=== PATIENT | female | born 1990 | race Caucasian/White ===

== ENCOUNTER 2019-04-03 17:54 | Emergency (ER) | payer SELFPAY ==
[~2019-04-03] VITALS: Ht 165.1 cm; Wt 88.5 kg
[~2019-04-03 17:54] MED LIST: METR500T PO; PRCD5U PO; SULF1TAB38 PO; TRAM-21 PO; TYLENOL
--- NOTE | 2019-04-03 18:02 | NUR ---
ex last noc. pt relates no vomiting today. and denies diarrhea. pt here by self. pt alert gcs 15. pt walked from w/r to er room w/o problems. pt been c/o ongoing dizziness and nausea and syncope. . seen dr 2 days ago . pt says they said everthing was normal. pt c/o these c/o continuing. pt denies chest pain and c/o nondescript left sided abd pain since spt denies ua c/os but c/o vaginal d/c and denies other vaginal c/os. no acute sighns of dyspnea noted. lungs cta bilaterally. abd soft nondistended tender to palpation llq abd only. pt to bathroom for ua and relates lmp was 5-24. done bryce pt at 1809.
--- NOTE | 2019-04-03 18:09 | ED EENT ---
History of Present Illness General Stated Complaint: VERTIGO/NAUSEA/PASSED OUT Source: patient Exam Limitations: no limitations History of Present Illness Date Seen by Provider: Apr 03, 2019 Time Seen by Provider: 18:12 Initial Comments To ER per private vehicle with reports of nausea and dizziness passing out and left lower quadrant abdominal pain. The left lower quadrant abdominal pain occurred last night with intercourse. She has had some clear vaginal discharge which she states is unusual because of the duration, it's been ongoing for about a month. She denies any ringing in her ears, rhinorrhea, nasal congestion cough or fevers. She saw primary care for this dizziness and was given a prescription for meclizine but states it did not help. The dizziness improves at rest but it is still present. It is worsened by activity or movement. She hasn't had any passing out or vomiting for 2 days, but the dizziness persists so she presented here today. Timing/Duration: this morning Severity: moderate (Nehemiah Maki did) Prearrival Treatment: no prearrival treatment Associated Symptoms: denies symptoms Allergies and Home Medications Allergies Coded Allergies: Codeine (Unverified Allergy, Mild, 04/16/09) Uncoded Allergies: CODIENE (Allergy, Mild, 02/21/09) Home Medications Metronidazole 500 Mg Tablet, 1 EACH PO BID Prescribed by: FLORENCIO PUGH on 05/30/091614 Trimethoprim/Sulfamethoxazole 1 Ea Tablet, 1 EA PO BID Prescribed by: FLORENCIO PUGH on 05/30/091614 Patient Home Medication List Home Medication List Reviewed: Yes Review of Systems Review of Systems Constitutional: see HPI, dizziness Eyes: No Symptoms Reported Ears: No Symptoms Reported Nose: no symptoms reported Mouth: no symptoms reported Throat: no symptoms reported Respiratory: no symptoms reported Cardiovascular: no symptoms reported Gastrointestinal: no symptoms reported Musculoskeletal: no symptoms reported Past Xvlrlzz-Lobtwq-Nilcej Hx Patient Social History Recent Foreign Travel: No Contact w/Someone Who Travel: No Physical Exam Vital Signs Vital Signs - First Documented 04/03/19 18:02 Temp 98.9 Pulse 88 Resp 16 B/P (MAP) 131/88 (102) Pulse Ox 100 O2 Delivery Room Air Height, Weight, BMI Height: '" Weight: lbs. oz. kg; BMI Method: General Appearance: WD/WN, no apparent distress Eyes: bilateral eye normal inspection, bilateral eye PERRL, bilateral eye EOMI Ears: bilateral ear auricle normal, bilateral ear canal normal, bilateral ear TM normal Mouth/Throat: normal mouth inspection, pharynx normal Neck: non-tender, full range of motion Cardiovascular: regular rate, rhythm, no murmur Respiratory: chest non-tender, lungs clear, normal breath sounds, no respiratory distress, no accessory muscle use Neurologic/Psychiatric: alert, normal mood/affect, oriented x 3 Skin: normal color, warm/dry Ambreen-Hallpike test is positive with increased dizziness/slight nystagmus with head turned to the left. Progress/Results/Core Measures Results/Orders Lab Results Laboratory Tests Test 04/03/19 18:13 04/03/19 18:16 Range/Units Urine Color YELLOW Urine Clarity CLEAR Urine pH 6.5 5-9 Urine Specific [place] 1.005 L 1.016-1.022 Urine Protein NEGATIVE NEGATIVE Urine Glucose (UA) NEGATIVE NEGATIVE Urine Ketones NEGATIVE NEGATIVE Urine Nitrite NEGATIVE NEGATIVE Urine Bilirubin NEGATIVE NEGATIVE Urine Urobilinogen NORMAL NORMAL MG/DL Urine Leukocyte Esterase NEGATIVE NEGATIVE Urine RBC (Auto) 1+ H NEGATIVE Urine RBC RARE /HPF Urine WBC RARE /HPF Urine Squamous Epithelial Cells 5-10 /HPF Urine Crystals NONE /LPF Urine Bacteria NEGATIVE /HPF Urine Casts NONE /LPF Urine Mucus NEGATIVE /LPF Urine Culture Indicated NO White Blood Count 8.8 4.3-11.0 10^3/uL Red Blood Count 4.44 4.35-5.85 10^6/uL Hemoglobin 13.1 11.5-16.0 G/DL Hematocrit 40 35-52 % Mean Corpuscular Volume 91 80-99 FL Mean Corpuscular Hemoglobin 30 25-34 PG Mean Corpuscular Hemoglobin Concent 33 32-36 G/DL Red Cell Distribution Width 13.8 10.0-14.5 % Platelet Count 351 130-400 10^3/uL Mean Platelet Volume 9.4 7.4-10.4 FL Neutrophils (%) (Auto) 66 42-75 % Lymphocytes (%) (Auto) 23 12-44 % Monocytes (%) (Auto) 9 0-12 % Eosinophils (%) (Auto) 1 0-10 % Basophils (%) (Auto) 0 0-10 % Neutrophils # (Auto) 5.9 1.8-7.8 X 10^3 Lymphocytes # (Auto) 2.1 1.0-4.0 X 10^3 Monocytes # (Auto) 0.8 0.0-1.0 X 10^3 Eosinophils # (Auto) 0.1 0.0-0.3 10^3/uL Basophils # (Auto) 0.0 0.0-0.1 10^3/uL Sodium Level 140 135-145 MMOL/L Potassium Level 3.7 3.6-5.0 MMOL/L Chloride Level 102 98-107 MMOL/L Carbon Dioxide Level 26 21-32 MMOL/L Anion Gap 12 5-14 MMOL/L Blood Urea Nitrogen 12 7-18 MG/DL Creatinine 1.02 0.60-1.30 MG/DL Estimat Glomerular Filtration Rate > 60 BUN/Creatinine Ratio 12 Glucose Level 96 70-105 MG/DL Calcium Level 9.7 8.5-10.1 MG/DL Corrected Calcium 8.5-10.1 MG/DL Total Bilirubin 0.3 0.1-1.0 MG/DL Aspartate Amino Transf (AST/SGOT) 19 5-34 U/L Alanine Aminotransferase (ALT/SGPT) 23 0-55 U/L Alkaline Phosphatase 53 40-136 U/L Total Protein 7.9 6.4-8.2 GM/DL Albumin 4.7 H 3.2-4.5 GM/DL Serum Test, Qualitative NEGATIVE NEGATIVE My Orders Orders - DEEDEE AZEVEDO APRN Ua Culture If Indicated (04/03/19 17:57) Cbc With Automated Diff (04/03/19 17:57) Comprehensive Metabolic Panel (04/03/19 17:57) Hcg,Qualitative Serum (04/03/19 17:57) Ed Iv/Invasive Line Start (04/03/19 17:57) Promethazine Injection (Phenergan Injec (04/03/19 18:15) Scopolamine Patch (Transderm-Scop Patch) (04/03/19 18:30) Iohexol Injection (Omnipaque 350 Mg/Ml 1 (04/03/19 18:30) Received Contrast (Hold Metformin- Contr (04/03/19 18:30) Sodium Chloride Flush (Catheter Flush Sy (04/03/19 18:30) Ns (Ivpb) (Sodium Chloride 0.9% Ivpb Bag (04/03/19 18:30) Ct Angio Head W Wo (04/03/19 18:09) Medications Given in ED Current Medications Medications Dose Ordered Sig/Basilio Route Start Time Stop Time Status Last Admin Dose Admin Iohexol 100 ml ONCE ONCE IV 04/03/19 18:30 04/03/19 18:31 DC 04/03/19 19:25 75 ML Promethazine HCl 12.5 mg ONCE ONCE IVP 04/03/19 18:15 04/03/19 18:16 DC 04/03/19 18:25 12.5 MG Scopolamine 1.5 mg ONCE ONCE TD 04/03/19 18:30 04/03/19 18:31 DC 04/03/19 18:24 1.5 MG Sodium Chloride 10 ml NEEDED PRN IV 04/03/19 18:30 04/03/19 19:25 10 ML Sodium Chloride 100 ml ONCE ONCE IV 04/03/19 18:30 04/03/19 18:31 DC 04/03/19 19:25 80 ML Vital Signs/I&O 04/03/19 04/03/19 18:02 19:45 Temp 98.9 98.7 Pulse 88 72 Resp 16 12 B/P (MAP) 131/88 (102) 118/73 (88) Pulse Ox 100 100 O2 Delivery Room Air Room Air Diagnostic Imaging Comments NAME: [facility] REC#: [id number] PT STATUS: REG ER : 1990 PHYSICIAN: DEEDEE AZEVEDO APRN ADMIT DATE: 04/03/19/ER Draft Date of Exam:04/03/19 CT ANGIO HEAD W WO PROCEDURE: CT angiography of the head with and without contrast. TECHNIQUE: Noncontrast CT of the head was obtained. Subsequently, after intravenous administration of contrast, thin section axial CT angiography of the head was performed. Source data was reformatted into multiple MIP reformats. Delayed postcontrast acquisition of the head was also acquired. Auto Exposure Controls were utilized during the CT exam to meet ALARA standards for radiation dose reduction. INDICATION: Vertigo, nausea for one week COMPARISON STUDY: CT scan of the head from 2008. FINDINGS: Noncontrast CT scan of the head demonstrates a persistent cavum septum pellucidum ed vergae which appears stable. No mass effect, midline shift, hemorrhage or extra-axial fluid collections are present. The carotid siphons appear normal. The right A1 segment is little small. The anterior communicating artery is patent. This is a normal variant. Middle cerebral arteries appear normal. The vertebral arteries are symmetric in size. Basilar artery appears normal. No stenosis or aneurysms are present. Bone windows demonstrate the mastoid air cells to be clear. 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 Questionable left jugular bulb dehiscence also. IMPRESSION: 1. 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 2. No acute findings are present. Dictated on workstation # [id number] Dict: 04/03/192031 Trans: 04/03/192045 [facility] [id number] Interpreted by: DREW FERRELL MD Electronically signed by: Departure Communication (Admissions) [id number]-discussed the CT findings of jugular bulb dehiscence with Dr. Vo from [facility] [place]. He advises that if she is feeling better she can go home to follow up outpatient with ear nose and throat. He states this is a potential cause of vertigo and should be treated surgically by ear nose and throat department. Impression Primary Impression: Vertigo Disposition: 01 HOME, SELF-CARE Condition: Stable Departure-Patient Inst. Decision time for Depature: 21:13 Referrals: NO,LOCAL PHYSICIAN (PCP/Family) Primary Care Physician Patient Instructions: Vertigo (a Type of Dizziness) (DC) Add. Discharge Instructions: 1. Follow-up with the ear nose and throat department at [facility]. Tell them you need to be seen for vertigo suspected to be caused by jugular bulb dehiscence. [facility] Department of Otolaryngology Address: [address] [place] [address] Scripts Scopolamine (Transderm-Scop) 1 Each Patch.td72 1 EACH TD Q72H PRN for VERTIGO, #2 PATCH Prov: DEEDEE AZEVEDO APRN 04/03/19 DEEDEE AZEVEDO [employer] ENGINEERING TEACHER Apr 03, 2019 18:09
[2019-04-03] MEDS ORDERED: PROMETHAZINE INJ 25 MG/ML (PHENERGAN) AMP IVP ONE (18:15)
--- NOTE | 2019-04-03 18:19 | NUR ---
labs and ua to lab by me
[2019-04-03 18:22] LABS: BASOPHILS % (AUTO) 0 % (0-10); EOSINOPHILS # (AUTO) 0.1 10^3/uL (0.0-0.3); EOSINOPHILS % (AUTO) 1 % (0-10); HEMATOCRIT 40 % (35-52); HEMOGLOBIN 13.1 G/DL (11.5-16.0); LYMPHOCYTES # (AUTO) 2.1 X 10^3 (1.0-4.0); LYMPHOCYTES % (AUTO) 23 % (12-44); MEAN CORPUSCULAR HEMOGLOBIN 30 PG (25-34); MEAN CORPUSCULAR HGB CONC 33 G/DL (32-36); MEAN CORPUSCULAR VOLUME 91 FL (80-99); MEAN PLATELET VOLUME 9.4 FL (7.4-10.4); MONOCYTES # (AUTO) 0.8 X 10^3 (0.0-1.0); MONOCYTES % (AUTO) 9 % (0-12); NEUTROPHILS # (AUTO) 5.9 X 10^3 (1.8-7.8); NEUTROPHILS % (AUTO) 66 % (42-75); PLATELET COUNT 351 10^3/uL (130-400); RED CELL DISTRIBUTION WIDTH 13.8 % (10.0-14.5); WHITE BLOOD COUNT 8.8 10^3/uL (4.3-11.0)
[2019-04-03 18:24] LABS: BILIRUBIN,URINE NEGATIVE (NEGATIVE); CLARITY,URINE CLEAR; COLOR,URINE YELLOW; GLUCOSE, URINE (UA) NEGATIVE (NEGATIVE); KETONES,URINE NEGATIVE (NEGATIVE); LEUKOCYTE ESTERASE ,URINE NEGATIVE (NEGATIVE); NITRITE,URINE NEGATIVE (NEGATIVE); PH,URINE 6.5 (5-9); PROTEIN,URINE NEGATIVE (NEGATIVE); UROBILINOGEN,URINE NORMAL (NORMAL)
[2019-04-03 18:29] LABS: BACTERIA,URINE NEGATIVE /HPF; RBC,URINE RARE /HPF; WBC,URINE RARE /HPF
[2019-04-03] MEDS ORDERED: HOLD METFORMIN - RECEIVED CONTRAST 20 ML VIAL IV SCH (18:30)
[2019-04-03] MEDS ORDERED: NS 100 ML (IVPB) BAG IV ONE (18:30)
[2019-04-03] MEDS ORDERED: IOHEXOL 350 MG/ML 100 ML (OMNIPAQUE 350) VIAL IV ONE (18:30)
[2019-04-03] MEDS ORDERED: SCOPOLAMINE 1.5 MG (TRANSDERM-SCOP) PATCH TD ONE (18:30)
[2019-04-03] MEDS ORDERED: CATHETER FLUSH 10 ML SYR IV PRN (18:30)
[2019-04-03 18:40] LABS: ALANINE AMINOTRANSFERASE 23 U/L (0-55); ALBUMIN 4.7 GM/DL (3.2-4.5); ALKALINE PHOSPHATASE 53 U/L (40-136); BILIRUBIN,TOTAL 0.3 MG/DL (0.1-1.0); BUN/CREATININE RATIO 12; CALCIUM 9.7 MG/DL (8.5-10.1); CARBON DIOXIDE 26 MMOL/L (21-32); CHLORIDE 102 MMOL/L (98-107); CREATININE SERUM 1.02 MG/DL (0.60-1.30); GFR ESTIMATED > 60; GLUCOSE 96 MG/DL (70-105); POTASSIUM 3.7 MMOL/L (3.6-5.0); SODIUM 140 MMOL/L (135-145); TOTAL PROTEIN 7.9 GM/DL (6.4-8.2)
--- OUTSIDE RECORDS SUMMARY | 2019-04-03 19:09 | XMS REPORT | Continuity of Care Document ---
Author Organization Unknown Address Unknown Allergies There is no data. Medications There is no data. Problems There is no data. Procedures There is no data. Results There is no data. Encounters ACCT No. Visit Date/Time Discharge Status Pt. Type Provider Facility Loc./Unit Complaint [id number] 04/01/2019 15:40:00 [facility]
--- NOTE | 2019-04-03 19:44 | NUR ---
pt remains alert gcs 15 and here by self. pt relates less dizzy but it continues. denies nausea and no v/d noted in er visit thus far. no syncope noted in er visit thus far.
[2019-04-03 19:45] VITALS: BP 118/73
--- NOTE | 2019-04-03 20:47 | Diagnostic Imaging Report ---
PROCEDURE: CT angiography of the head with and without contrast. TECHNIQUE: Noncontrast CT of the head was obtained. Subsequently, after intravenous administration of contrast, thin section axial CT angiography of the head was performed. Source data was reformatted into multiple MIP reformats. Delayed postcontrast acquisition of the head was also acquired. Auto Exposure Controls were utilized during the CT exam to meet ALARA standards for radiation dose reduction. INDICATION: Vertigo, nausea for one week COMPARISON STUDY: CT scan of the head from 2008. FINDINGS: Noncontrast CT scan of the head demonstrates a persistent cavum septum pellucidum ed vergae which appears stable. No mass effect, midline shift, hemorrhage or extra-axial fluid collections are present. The carotid siphons appear normal. The right A1 segment is little small. The anterior communicating artery is patent. This is a normal variant. Middle cerebral arteries appear normal. The vertebral arteries are symmetric in size. Basilar artery appears normal. No stenosis or aneurysms are present. Bone windows demonstrate the mastoid air cells to be clear. 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 Questionable left jugular bulb dehiscence also. IMPRESSION: 1. 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 2. No acute findings are present. Dictated by: Dictated on workstation # [id number]
[2019-04-03] MEDS ORDERED: SCOP1PAT11 TD (21:15)
[2019-04-03 21:25] VITALS: BP 113/74
--- NOTE | 2019-04-03 21:25 | NUR ---
d/c instrcutions to pt. told to read all papers. scripts paper only. pt left ambulatory by self. pt knows f/u. i went over the handtyped by information on the chart. iv d/cd by me prior to d/c.
== END 2019-04-03 21:25 | disposition home or self-care (01) ==
LOC: EDUNIT# 17:54 → ER 17:56
DX: R42 Dizziness and giddiness (principal); Z88.5 Allergy status to narcotic agent
CPT/HCPCS: 36415; 70496; 80053; 81000; 84703; 85025; 96374

== ENCOUNTER 2019-11-25 20:40 | Emergency (ER) | payer MEDICAID ==
[~2019-11-25] VITALS: Ht 160 cm; Wt 95.1 kg
[~2019-11-25 20:40] MED LIST changes: +SCOP1PAT11 TD
[2019-11-25] MEDS ORDERED: NS IV 1000 ML 1,000 ML IV ONE (21:52)
[2019-11-25] MEDS ORDERED: PROM25TA14 PO (21:57)
--- NOTE | 2019-11-25 21:58 | ED General ---
General Chief Complaint: Fever-Adult/Adol Stated Complaint: VOMITTNG,FEVER,COUGHING,10 WEEKS PREG Nursing Triage Note: sore throat, dry cough x1 day, fever, vomitting x3 today Nursing Sepsis Screen: Possible Severe Sepsis Risk Source of Information: Patient Exam Limitations: No Limitations History of Present Illness Date Seen by Provider: Nov 26, 2019 Time Seen by Provider: 20:57 Initial Comments This 29-year-old woman at approximately 10 weeks gestational age presents with 3 days of fever, sore throat and cough. She vomited 3 today. She is tachycardic and febrile. Allergies and Home Medications Allergies Coded Allergies: Codeine (Unverified Allergy, Mild, 04/16/09) Uncoded Allergies: CODIENE (Allergy, Mild, 02/21/09) Home Medications Promethazine HCl 25 Mg Tablet, 25 MG PO Q8H PRN for NAUSEA/VOMITING Prescribed by: JG GORDON on 11/25/19 2504 Patient Home Medication List Home Medication List Reviewed: Yes Review of Systems Review of Systems Constitutional: see HPI EENTM: see HPI Respiratory: see HPI Cardiovascular: see HPI Gastrointestinal: see HPI Genitourinary: no symptoms reported : Yes Expected Date of Delivery: Jun 17, 2020 Musculoskeletal: no symptoms reported Skin: no symptoms reported Psychiatric/Neurological: No Symptoms Reported Hematologic/Lymphatic: No Symptoms Reported Immunological/Allergic: no symptoms reported Past Rkpeaoj-Salglu-Flkczd Hx Past Med/Social Hx: Reviewed Nursing Past Med/Soc Hx Patient Social History Alcohol Use: Denies Use Recreational Drug Use: No Smoking Status: Never a Smoker 2nd Hand Smoke Exposure: No Recent Foreign Travel: No Contact w/Someone Who Travel: No Recent Infectious Disease Expo: No Recent Hopitalizations: No Physical Abuse: No Sexual Abuse: No Mistreated: No Fear: No Immunizations Up To Date Tetanus Booster (TDap): Unknown Seasonal Allergies Seasonal Allergies: No Past Medical History Surgeries: Yes (dental) Bladder Surgery Respiratory: No Cardiac: No Neurological: No : Yes Expected Date of Delivery: Jun 17, 2020 Last Menstrual Period: Aug 29, 2019 Genitourinary: No Gastrointestinal: No Musculoskeletal: No Endocrine: Yes Hypothyroidsim HEENT: No Cancer: No Psychosocial: No Integumentary: No Physical Exam Vital Signs Vital Signs - First Documented 11/25/19 20:49 Temp 39.5 Pulse 124 Resp 16 B/P (MAP) 120/67 (84) Pulse Ox 96 O2 Delivery Room Air Capillary Refill : Less Than 3 Seconds Height, Weight, BMI Height: 5'5.00" Weight: 195lbs. oz. 88.887543rb; 37.00 BMI Method:Stated General Appearance: No Apparent Distress, WD/WN HEENT: PERRL/EOMI, Normal ENT Inspection, Pharynx Normal Neck: Normal Inspection Respiratory: Lungs Clear, Normal Breath Sounds, No Accessory Muscle Use, No Respiratory Distress Cardiovascular: Regular Rate, Rhythm, No Edema, No Murmur, Tachycardia (regular) Gastrointestinal: Normal Bowel Sounds, Non Tender, Soft Extremity: Normal Inspection, No Pedal Edema Neurologic/Psychiatric: Alert, Oriented x3, No Motor/Sensory Deficits, Normal Mood/Affect, liquor blender II-XII Norm as Tested Skin: Normal Color, Warm/Dry Progress/Results/Core Measures Suspected Sepsis Recent Fever Within 48 Hours: Yes Infection Criteria Present: Suspected New Infection New/Unexplained Altered Menta: No Sepsis Screen: Possible Severe Sepsis Risk SIRS Temperature: Pulse: 124 Respiratory Rate: 16 Blood Pressure 120 /67 Mean: 84 Laboratory Tests 11/25/19 21:55: Creatinine 0.86 Results/Orders Lab Results Laboratory Tests Test 11/25/19 20:56 11/25/19 21:55 Range/Units Group A Streptococcus Screen NEGATIVE NEGATIVE Sodium Level 136 135-145 MMOL/L Potassium Level 3.9 3.6-5.0 MMOL/L Chloride Level 104 98-107 MMOL/L Carbon Dioxide Level 23 21-32 MMOL/L Anion Gap 9 5-14 MMOL/L Blood Urea Nitrogen 9 7-18 MG/DL Creatinine 0.86 0.60-1.30 MG/DL Estimat Glomerular Filtration Rate > 60 BUN/Creatinine Ratio 10 Glucose Level 96 70-105 MG/DL Calcium Level 8.9 8.5-10.1 MG/DL Micro Results Microbiology 11/25/19 Influenza Types A,B Antigen (BHAVIK) - Final, Complete My Orders Orders - JG TOWNSEND MD Rapid Strep A Screen (11/25/19 20:57) Influenza A And B Antigens (11/25/19 20:57) Ed Iv/Invasive Line Start (11/25/19 21:52) Ns Iv 1000 Ml (Sodium Chloride 0.9%) (11/25/19 21:52) Basic Metabolic Panel (11/25/19 21:52) Promethazine Injection (Phenergan Injec (11/25/19 22:00) Medications Given in ED Current Medications Medications Dose Ordered Sig/Basilio Route Start Time Stop Time Status Last Admin Dose Admin Promethazine HCl 25 mg ONCE ONCE IVP 11/25/19 22:00 11/25/19 22:01 DC 11/25/19 21:56 25 MG Sodium Chloride 1,000 ml @ 0 mls/hr Q0M ONCE IV 11/25/19 21:52 11/25/19 21:53 DC 11/25/19 21:56 0 MLS/HR Vital Signs/I&O 11/25/19 11/25/19 20:49 22:27 Temp 39.5 38.1 Pulse 124 104 Resp 16 16 B/P (MAP) 120/67 (84) 110/76 (84) Pulse Ox 96 100 O2 Delivery Room Air Room Air 11/26/19 00:00 Intake Total 1000 ml Balance 1000 ml Capillary Refill : Less Than 3 Seconds Blood Pressure Mean: 84 Progress Note : Progress Note Patient was found to have influenza B. She is concerned about her hydration status and is quite tachycardic. A liter of IV normal saline and Phenergan were ordered. Departure Impression Primary Impression: Influenza B Additional Impression: Nausea and vomiting Qualified Codes: R11.2 - Nausea with vomiting, unspecified Disposition: 01 HOME, SELF-CARE Condition: Improved Departure-Patient Inst. Decision time for Depature: 21:55 Referrals: NO,LOCAL PHYSICIAN (PCP/Family) Primary Care Physician Patient Instructions: Flu, Adult (DC) Add. Discharge Instructions: Drink plenty of clear liquids. Gradually advance your diet with small quantities of bland food as tolerated. You may use Phenergan (promethazine) as prescribed for nausea and vomiting. Please notify your partnership manager of your condition in the morning. He may continue using Tylenol (acetaminophen) up to 1000 mg every 6 hours as needed for pain or fever. Return to care if you have worsening symptoms or have any other problems or concerns. All discharge instructions reviewed with patient and/or family. Voiced understanding. Scripts Promethazine HCl (Promethazine Tablet) 25 Mg Tablet 25 MG PO Q8H PRN for NAUSEA/VOMITING, #10 TAB 0 Refills Prov: JG TOWNSEND MD 11/25/19 JG TOWNSEND MD Nov 25, 2019 21:58
[2019-11-25] MEDS ORDERED: PROMETHAZINE INJ 25 MG/ML (PHENERGAN) AMP IVP ONE (22:00)
[2019-11-25 22:25] LABS: BUN/CREATININE RATIO 10; CALCIUM 8.9 MG/DL (8.5-10.1); CARBON DIOXIDE 23 MMOL/L (21-32); CHLORIDE 104 MMOL/L (98-107); CREATININE SERUM 0.86 MG/DL (0.60-1.30); GFR ESTIMATED > 60; GLUCOSE 96 MG/DL (70-105); POTASSIUM 3.9 MMOL/L (3.6-5.0); SODIUM 136 MMOL/L (135-145)
[2019-11-25 22:27] VITALS: BP 110/76
== END 2019-11-25 22:27 | disposition home or self-care (01) ==
LOC: EDUNIT# 20:40 → ER 20:43
DX: O99.511 Diseases of the respiratory system complicating pregnancy, first trimester (principal); J10.1 Influenza due to other identified influenza virus with other respiratory manifestations; O21.0 Mild hyperemesis gravidarum; Z88.5 Allergy status to narcotic agent; Z3A.10 10 weeks gestation of pregnancy
CPT/HCPCS: 36415; 80048; 87430; 87804; 96374

== ENCOUNTER 2020-02-29 23:33 | Outpatient (CLI) | payer MEDICAID ==
[~2020-02-29] VITALS: Ht 160 cm; Wt 97.8 kg
[~2020-02-29 23:33] MED LIST changes: +PROM25TA14 PO
--- NOTE | 2020-02-29 23:40 | NUR ---
MAYO FERGUSON presented to unit via wc from ED, accompanied by s.o and inweaver, with c/o RT SIDE SHARP PAIN. MAYO FERGUSON weighed, gowned, voided, and to bed. EFHM and TOCO applied, VS taken. MAYO FERGUSON oriented to bed controls, call light, TV, heat, and A/C controls. further assessments to follow per this rn.
[2020-03-01] VITALS: BP 123/85
[2020-03-01 00:03] VITALS: BP 123/65
[2020-03-01 00:16] LABS: BILIRUBIN,URINE NEGATIVE (NEGATIVE); CLARITY,URINE CLEAR; COLOR,URINE YELLOW; GLUCOSE, URINE (UA) NEGATIVE (NEGATIVE); KETONES,URINE NEGATIVE (NEGATIVE); LEUKOCYTE ESTERASE ,URINE 1+ (NEGATIVE); NITRITE,URINE NEGATIVE (NEGATIVE); PH,URINE 6.5 (5-9); PROTEIN,URINE NEGATIVE (NEGATIVE)
[2020-03-01 00:24] LABS: BACTERIA,URINE FEW /HPF; RBC,URINE RARE /HPF; WBC,URINE 0-2 /HPF
--- NOTE | 2020-03-01 00:30 | NUR ---
notified of pt arrival, gestation, c.o R sided pain radiating down into the pelvic area since 1099. Pt reports entire area as dull pain that is constant at 6/10 pain scale, and sharp int pain localized in RLQ rated 10/10, unrelieved by tylenol 650mg taken at 1999, RUQ tenderness upon palpation, ctx pattern, fhr pattern, vs, u/a results, orders for lab work, rn asks if cbc, cmp, ldh, uric acid, and pcr are wanted, orders for just cbc cmp. Addendum: 03/01/20 at 0140 by EDD ANTHONY RN if lab results wnl pt may be discharged.
--- NOTE | 2020-03-01 00:50 | NUR ---
labs drawn per rn and sent to lab.
[2020-03-01 01:01] LABS: BASOPHILS % (AUTO) 0 % (0-10); EOSINOPHILS # (AUTO) 0.1 10^3/uL (0.0-0.3); EOSINOPHILS % (AUTO) 1 % (0-10); HEMATOCRIT 31 % (35-52); HEMOGLOBIN 10.1 G/DL (11.5-16.0); LYMPHOCYTES # (AUTO) 1.8 X 10^3 (1.0-4.0); LYMPHOCYTES % (AUTO) 19 % (12-44); MEAN CORPUSCULAR HEMOGLOBIN 31 PG (25-34); MEAN CORPUSCULAR HGB CONC 33 G/DL (32-36); MEAN CORPUSCULAR VOLUME 93 FL (80-99); MEAN PLATELET VOLUME 9.3 FL (7.4-10.4); MONOCYTES # (AUTO) 0.9 X 10^3 (0.0-1.0); MONOCYTES % (AUTO) 9 % (0-12); NEUTROPHILS # (AUTO) 6.7 X 10^3 (1.8-7.8); NEUTROPHILS % (AUTO) 70 % (42-75); PLATELET COUNT 278 10^3/uL (130-400); RED CELL DISTRIBUTION WIDTH 14.2 % (10.0-14.5); WHITE BLOOD COUNT 9.5 10^3/uL (4.3-11.0)
[2020-03-01 01:08] LABS: ALBUMIN 3.5 GM/DL (3.2-4.5)
[2020-03-01 01:09] LABS: CHLORIDE 105 MMOL/L (98-107); POTASSIUM 3.6 MMOL/L (3.6-5.0); SODIUM 137 MMOL/L (135-145)
[2020-03-01 01:10] LABS: CALCIUM 8.6 MG/DL (8.5-10.1)
[2020-03-01 01:11] LABS: GLUCOSE 87 MG/DL (70-105); TOTAL PROTEIN 6.3 GM/DL (6.4-8.2)
[2020-03-01 01:12] LABS: CARBON DIOXIDE 22 MMOL/L (21-32)
[2020-03-01 01:13] LABS: BILIRUBIN,TOTAL 0.1 MG/DL (0.1-1.0)
[2020-03-01 01:14] LABS: ALKALINE PHOSPHATASE 54 U/L (40-136); CREATININE SERUM 0.68 MG/DL (0.60-1.30); GFR ESTIMATED > 60
[2020-03-01 01:16] LABS: BUN/CREATININE RATIO 9
[2020-03-01 01:17] LABS: ALANINE AMINOTRANSFERASE 15 U/L (0-55)
[2020-03-01] MEDS ORDERED: PREN-53 PO (01:23)
--- NOTE | 2020-03-01 01:28 | NUR ---
discharge packet given and explained, understanding voiced, pt urged to keep appt previously made with for tomorrow. Pt voices understanding. Addendum: 03/01/20 at 0141 by EDD ANTHONY RN pt ambulatory off unit at this time accompanied by s/o. no ss distress, no needs voiced, no concerns noted.
[2020-03-01 01:41] VITALS: BP 123/65
--- NOTE | 2020-03-01 01:42 | NUR ---
NO PNR AVAILABLE AT TIME OF VISIT.
--- NOTE | 2020-03-01 08:39 | Physician Query-Final Dx ---
Clinic Account Progress/Dx Physician Query: Please give diagnosis Date of Service Feb 29, 2020 at 23:33 MARIA ESTHER DOWNEY Mar 01, 2020 08:39
== END 2020-03-01 01:28 | disposition home or self-care (01) ==
LOC: WSo 23:33 → LDRP 23:35 → WSo 03-01 01:28
PROVIDERS: ATTEND Family Medicine
DX: O26.899 Other specified pregnancy related conditions, unspecified trimester (principal); R10.9 Unspecified abdominal pain; Z3A.00 Weeks of gestation of pregnancy not specified
CPT/HCPCS: 36415; 80053; 81000; 85025; 99213

== ENCOUNTER 2020-04-24 22:01 | Outpatient (CLI) | payer MEDICAID ==
[~2020-04-24] VITALS: Ht 160 cm; Wt 101.2 kg
[~2020-04-24 22:01] MED LIST changes: +PREN-53 PO
--- NOTE | 2020-04-24 22:07 | NUR ---
MAYO FERGUSON presented to unit via ambulatory from ED, accompanied by s.o., with c/o PRESSURE/CONTRACTIONS. MAYO FERGUSON weighed, gowned, voided, and to bed. EFHM and TOCO applied, VS taken. MAYO FERGUSON oriented to bed controls, call light, TV, heat, and A/C controls.
[2020-04-24 22:17] VITALS: BP 120/64
[2020-04-24 22:20] VITALS: BP 120/64
[2020-04-24 22:24] VITALS: BP 120/64
[2020-04-24 22:32] LABS: BILIRUBIN,URINE NEGATIVE (NEGATIVE); CLARITY,URINE SL CLOUDY; COLOR,URINE YELLOW; GLUCOSE, URINE (UA) NEGATIVE (NEGATIVE); KETONES,URINE NEGATIVE (NEGATIVE); LEUKOCYTE ESTERASE ,URINE 1+ (NEGATIVE); NITRITE,URINE NEGATIVE (NEGATIVE); PROTEIN,URINE NEGATIVE (NEGATIVE)
[2020-04-24 22:38] LABS: BACTERIA,URINE FEW /HPF; SQUAMOUS EPITHELIAL CELL,UR 25-50 /HPF
--- NOTE | 2020-04-24 23:22 | NUR ---
Dr. Triana called per Bogdan Montoya RN. Will cont to monitor x1 more hour and recheck cervix at that time.
[2020-04-25 07:19] VITALS: BP 119/58
--- NOTE | 2020-04-25 08:05 | NUR ---
VISUAL EDUCATOR HERE TO DO OB ULTRASOUND.
[2020-04-25 08:20] VITALS: BP 114/55
--- NOTE | 2020-04-25 08:25 | NUR ---
NOTIFIED OF BOBBI OF 12, NO CTXS, AND REACTIVE FHR PATTERN. ORDER TO DISCHARGE.
--- NOTE | 2020-04-25 08:50 | NUR ---
EFM OFF. UP TO GET DRESSED. NO CTXS. FHR 125 WITH MOD VARIABILITY AND + FM WITH + ACCELS.
[2020-04-25 09:00] VITALS: BP 114/55
--- NOTE | 2020-04-25 09:00 | NUR ---
DISCHARGE INSTRUCTIONS REVIEWED WITH PT AND S.O. AND COPY GIVEN. STATES UNDERSTANDING OF ALL INSTRUCTIONS AND NEED TO F/U SCHEDULED TOMORROW WITH DR. PAGAN AND NEEDED. DISMISSED FROM WS AMB IN STABLE CONDITION ACC BY S.O.
--- NOTE | 2020-04-25 09:49 | NUR ---
U/S TECH RETURNED TO UNIT TO TAKE MORE PICTURES TRANSVAGINALLY. PT HAS DEPARTED. DR. DAWSON NOTIFIED OF SITUATION AND WILL CONTACT DR. VICTOR AND PATIENT.
--- NOTE | 2020-04-25 10:20 | Diagnostic Imaging Report ---
INDICATION: Evaluate amniotic fluid index. TECHNIQUE: Multiple real-time grayscale images were obtained over the gravid uterus. COMPARISON: None FINDINGS: There is a single live fetus in a cephalic presentation. heart rate was recorded at 120 bpm. Placenta is posterior. A no previa is identified. The placental tip is approximately 10 cm from the internal cervical os. Amniotic fluid index is 13 cm. Biometrical measurements are as follows: Biparietal 9.25 cm, age 37 weeks 5 days. Head circumference 33.02 cm, age 37 weeks 5 days. Abdominal circumference 30.81 cm, age 34 weeks 6 days. Femur length 6.42 cm, age 33 weeks 2 days. Sonographic estimate age: 36 weeks 0 days. Sonographic estimated date of delivery: 05/23/2020. Estimated Weight: 2539 gm (+/- 371 gm). LMP percentile: 70%. heart rate: 120 beats per minute. number: 1 of 1. IMPRESSION: Single live IUP approximately 36 weeks gestational age with estimated date of confinement sonographically of 05/23/2020. No definite complicating features are seen. Dictated by: Dictated on workstation # [id number]
--- NOTE | 2020-04-26 09:53 | Physician Query-Final Dx ---
Clinic Account Progress/Dx Physician Query: Please give diagnosis Please include # weeks gestation Date of Service Apr 24, 2020 at 22:01 MARIA ESTHER DOWNEY Apr 26, 2020 09:53
== END 2020-04-25 09:00 | disposition home or self-care (01) ==
LOC: WSo 22:01 → LDRP 22:01 → WSo 04-25 09:00
PROVIDERS: ATTEND Family Medicine
DX: O62.9 Abnormality of forces of labor, unspecified (principal)
CPT/HCPCS: 76805; 81000; 87088; G0463; 99213

== ENCOUNTER 2020-05-02 12:50 | Outpatient (CLI) | payer MEDICAID ==
[~2020-05-02] VITALS: Ht 160 cm; Wt 101.7 kg
--- NOTE | 2020-05-02 12:55 | NUR ---
MAYO FERGUSON presented to unit via AMBULATORY from ED, accompanied by S/O, with c/o ABD CRAMPS;BACK PAIN. MAYO FERGUSON weighed, gowned, voided, and to bed. EFHM and TOCO applied, VS taken. MAYO FERGUSON oriented to bed controls, call light, TV, heat, and A/C controls.
[2020-05-02 13:10] VITALS: BP 122/69
--- NOTE | 2020-05-02 13:15 | NUR ---
DR. RODRIGUEZ, RESIDENT, ON UNIT TO MANAGE PT CARE.
[2020-05-02 13:16] VITALS: BP 122/69
[2020-05-02 13:56] LABS: BILIRUBIN,URINE NEGATIVE (NEGATIVE); CLARITY,URINE SL CLOUDY; COLOR,URINE YELLOW; GLUCOSE, URINE (UA) NEGATIVE (NEGATIVE); KETONES,URINE NEGATIVE (NEGATIVE); LEUKOCYTE ESTERASE ,URINE 1+ (NEGATIVE); NITRITE,URINE NEGATIVE (NEGATIVE); PH,URINE 7.5 (5-9); PROTEIN,URINE NEGATIVE (NEGATIVE)
[2020-05-02 14:03] LABS: BACTERIA,URINE MODERATE /HPF; SQUAMOUS EPITHELIAL CELL,UR 25-50 /HPF
--- NOTE | 2020-05-02 14:14 | OB Triage Report ---
Standard Progress Note Progress Notes/Assess & Plan Date Seen by a Provider: May 02, 2020 Time Seen by a Provider: 14:00 Expected Date of Delivery: Jun 17, 2020 Gestational Age in Weeks: 33 Gestational Age in Days: 3 LMP/COY Comment: COY: 06/17/2020 by Mahad 10/27/2019 Progress/Assessment & Plan Lyndsey Blue is a with no previous past medical history presents to OB triage reporting one week history progressive abdominal and back cramping. She also mentions that yesterday her symptoms changed in ways of headache, shortness of breath, diarrhea, and increased sciatica pain. She denies intractable headache, vision changes, chest pain/pressure, LUQ pain, increased swelling. She has not tried any medications for the pain and/or cramps. She endorses losing her mucus plug last week, but denies vaginal bleeding or loss of fluid, or pains consistent with contractions. She admits to movement, although movement has been decreased today when compared to baseline. heart rate: 140 Category: II, + accels, no decels, moderate variability TOCO: irritability, 0/10 Urinalysis with leukocytes, WBCs, and moderate bacteria with urinary frequency (increased from baseline) consistent with UTI. Wet prep positive for fungal elements and patient with increased white discharge consistent with candidiasis of vagina in . Final Diagnosis Urinary tract infection and vaginal Candidiasis in . Diagnosis/Problems Diagnosis/Problems (1) Urinary tract infection affecting Status: Acute Assessment & Plan: - Macrobid 100mg BID x 10days - Pyridium 100mg TID x 2 days (2) Candidiasis of vagina during Status: Acute Assessment & Plan: - Diflucan 150mg PO q48h x 2 doses (3) Headache Status: Acute Assessment & Plan: - Fioricet 50mg/300mg/40mg once in OB triage for headache and abdominal/sciatica pains Qualifiers: Qualified Codes: R51 - Headache CARLTON RODRIGUEZ MD May 02, 2020 14:14
[2020-05-02] MEDS ORDERED: CEPHALEXIN 250 MG (KEFLEX) CAP PO SCH (14:15)
[2020-05-02] MEDS ORDERED: CEPH250C PO (14:23)
--- NOTE | 2020-05-02 14:27 | Discharge Inst-Women's Service ---
Discharge Inst-Women's Serv Depart Medication/Instructions New, Converted or Re-Newed RX: Transmitted to Pharmacy Instructions Take Keflex 1 tablet every 6 hours for 5 days for Urinary Tract Infection. Final Diagnosis complicated by UTI Problems Reviewed?: Yes Consults/Follow Up Additional Follow Up: Yes Orders/Referrals Follow up with OB provider as scheduled for routine care. Activity Activity: Activity as Tolerated Driving Instructions: You May Drive NO SMOKING: NO SMOKING Diet Discharge Diet: No Restrictions Return to The Hospital For: Shortness of breath that does not resolve with rest, vaginal bleeding, decreased movement, loss of fluid (water breaks) Symptoms to Report to : Swelling Increased, Bleeding Excessive, Eyesight Changes, Urine Color Change, Fever Over 101 Degrees F, Pain/Pressure in Chest, Lightheadedness, Vaginal Discharge Foul, Shortness of Breath For Any Problems or Questions: Contact Your Physician, Go to Emergency Room CARLTON RODRIGUEZ MD May 02, 2020 14:27
[2020-05-02] MEDS ORDERED: ACET/BUTAL/CAFF (FIORICET) TAB PO ONE (14:45)
[2020-05-02] MEDS ORDERED: NITR-65 PO (14:49)
[2020-05-02] MEDS ORDERED: PHEN-639 PO (14:49)
[2020-05-02] MEDS ORDERED: FLUC150T PO (14:49)
--- NOTE | 2020-05-02 15:12 | NUR ---
DISCHARGE PAPERS PROVIDED AND REVIEWED WITH PT, PT VERBALIZES UNDERSTANDING AND DENIES ANY QUESTIONS AT THIS TIME. PAPER SIGNED.
--- NOTE | 2020-05-02 15:20 | NUR ---
PT DISCHARGED FROM [facility] TO [facility] AMBULATORY IN STABLE CONDITION ACC BY S/O.
== END 2020-05-02 15:20 | disposition home or self-care (01) ==
LOC: WSo 12:50 → LDRP 12:51 → WSo 15:20
PROVIDERS: ATTEND Obstetrics & Gynecology
DX: O23.43 Unspecified infection of urinary tract in pregnancy, third trimester (principal); O98.813 Other maternal infectious and parasitic diseases complicating pregnancy, third trimester; B37.3 Candidiasis of vulva and vagina; Z3A.33 33 weeks gestation of pregnancy; R51 Headache
CPT/HCPCS: 81000; 87077; 87088; 87210; G0463; 99213

== ENCOUNTER 2020-05-23 23:24 | Outpatient (CLI) | payer MEDICAID ==
[~2020-05-23 23:24] MED LIST changes: +CEPH250C PO; +FLUC150T PO; +NITR-65 PO; +PHEN-639 PO
--- NOTE | 2020-05-23 23:26 | NUR ---
AMYO FERGUSON presented to unit via w'c from ED, accompanied by s/o, with c/o FLUID LEAKAGE. MAYO FERGUSON weighed, gowned, voided, and to bed. EFHM and TOCO applied, VS taken. MAYO FERGUSON oriented to bed controls, call light, TV, heat, and A/C controls.
[2020-05-23 23:35] VITALS: BP 123/58
[2020-05-23 23:39] VITALS: BP 123/58
--- NOTE | 2020-05-23 23:39 | NUR ---
ht and wt not obtained r/t possible leaking, ambulation contraindicated.
[2020-05-24] VITALS: BP 123/58
[2020-05-24 00:07] LABS: BILIRUBIN,URINE NEGATIVE (NEGATIVE); CLARITY,URINE SL CLOUDY; COLOR,URINE YELLOW; GLUCOSE, URINE (UA) NEGATIVE (NEGATIVE); KETONES,URINE NEGATIVE (NEGATIVE); LEUKOCYTE ESTERASE ,URINE NEGATIVE (NEGATIVE); NITRITE,URINE NEGATIVE (NEGATIVE); PH,URINE 5.5 (5-9); PROTEIN,URINE NEGATIVE (NEGATIVE)
[2020-05-24 00:27] LABS: BACTERIA,URINE TRACE /HPF
[2020-05-24 00:28] LABS: AMORPHOUS SEDIMENT,UR MOD AMOR URATES /LPF
--- NOTE | 2020-05-24 00:45 | NUR ---
Discharge packet given and explained, understanding voiced, pt up to change for dismissal.
--- NOTE | 2020-05-24 00:53 | NUR ---
Ambulatory off unit at this time. Accompanied by s/o no ss distress noted.
--- NOTE | 2020-05-24 08:21 | Physician Query-Final Dx ---
MARIA ESTHER DOWNEY 05/24/20 0821: Clinic Account Progress/Dx Physician Query: Please give diagnosis Please give # weeks gestation Date of Service May 23, 2020 at 23:24 ELMO DOE DO 05/25/20 0625: Clinic Account Progress/Dx Physician Query: Please give diagnosis DIAGNOSIS: Diagnosis Intrauterine at 35 weeks 2. Leaking Fluid 3. Pelvic Pain MARIA ESTHER DOWNEY May 24, 2020 08:21 ELMO DOE DO May 25, 2020 06:25
== END 2020-05-24 00:53 | disposition home or self-care (01) ==
LOC: WSo 23:24 → LDRP 23:26 → WSo 05-24 00:53
PROVIDERS: ATTEND Obstetrics & Gynecology
DX: O41.93X0 Disorder of amniotic fluid and membranes, unspecified, third trimester, not applicable or unspecified (principal); Z3A.36 36 weeks gestation of pregnancy
CPT/HCPCS: 81000; G0463; 99213

== ENCOUNTER 2020-05-30 21:23 | Outpatient (CLI) | payer MEDICAID ==
[~2020-05-30] VITALS: Ht 160 cm; Wt 106.6 kg
--- NOTE | 2020-05-30 21:28 | NUR ---
MAYO FERGUSON presented to unit via ambulation from ED, accompanied by , with c/o CONTRACTIONS. MAYO FERGUSON weighed, gowned, voided, and to bed. EFHM and TOCO applied, VS taken. MAYO FERGUSON oriented to bed controls, call light, TV, heat, and A/C controls.
[2020-05-30 21:47] VITALS: BP 132/60
[2020-05-30 21:51] LABS: BILIRUBIN,URINE NEGATIVE (NEGATIVE); COLOR,URINE YELLOW; GLUCOSE, URINE (UA) NEGATIVE (NEGATIVE); KETONES,URINE NEGATIVE (NEGATIVE); LEUKOCYTE ESTERASE ,URINE NEGATIVE (NEGATIVE); NITRITE,URINE NEGATIVE (NEGATIVE); PH,URINE 6.5 (5-9); PROTEIN,URINE NEGATIVE (NEGATIVE)
[2020-05-30 21:53] VITALS: BP 132/60
[2020-05-30 21:56] LABS: CLARITY,URINE SL CLOUDY
[2020-05-30 21:57] LABS: BACTERIA,URINE MODERATE /HPF; SQUAMOUS EPITHELIAL CELL,UR 25-50 /HPF
[2020-05-30 22:00] VITALS: BP 132/60
--- NOTE | 2020-05-30 23:00 | NUR ---
Discharge packet given and explained, with pain management techniques, understanding voiced per pt.
--- NOTE | 2020-05-30 23:05 | NUR ---
Pt ambulatory off unit at this time accompanied by s/o belongings in hand.
--- NOTE | 2020-05-31 08:21 | Physician Query-Final Dx ---
Clinic Account Progress/Dx Physician Query: Please give diagnosis Please complete # weeks gestation Date of Service May 30, 2020 at 21:23 MARIA ESTHER DOWNEY May 31, 2020 08:21
== END 2020-05-30 23:05 | disposition home or self-care (01) ==
LOC: LDRP 21:23 → WSo 21:23
PROVIDERS: ATTEND Obstetrics & Gynecology
DX: O62.9 Abnormality of forces of labor, unspecified (principal); Z3A.00 Weeks of gestation of pregnancy not specified
CPT/HCPCS: 81000; 87088; 99213

== ENCOUNTER 2020-06-05 13:45 | Outpatient (CLI) | payer MEDICAID ==
[~2020-06-05] VITALS: Ht 160 cm; Wt 106.2 kg
--- NOTE | 2020-06-05 13:50 | NUR ---
Arrived to unit ambulates self with c/o contractions, nausea/vomiting and diarrhea. Wt obtained and to room 320. Gowned and urine sample obtained. To bed and oriented to room, call light and surroundings. Plan of care reviewed with pt and s.o. present at bedside.
[2020-06-05 14:02] VITALS: BP 125/62
[2020-06-05 14:03] VITALS: BP 125/62
[2020-06-05 14:07] VITALS: BP 125/62
--- NOTE | 2020-06-05 15:18 | NUR ---
Dr Rm called and notified of pt arrival, gestation, c/o, assessment, sve's, urine dipstick. New order for discharge
--- NOTE | 2020-06-05 15:20 | NUR ---
monitors off. plan of care reviewed with pt and s.o. pt up to get dressed.
[2020-06-05 15:25] VITALS: BP 125/62
--- NOTE | 2020-06-05 15:30 | NUR ---
Discharge instructions explained, signed and copy to patient. pt verbalized understanding of instructions and denied questions. Ambulates self off unit accompanied by s.o. To private vehicle with belongings in hand.
== END 2020-06-05 15:30 | disposition home or self-care (01) ==
LOC: LDRP 13:45 → WSo 13:45
PROVIDERS: ATTEND Obstetrics & Gynecology
DX: O21.9 Vomiting of pregnancy, unspecified (principal); O26.899 Other specified pregnancy related conditions, unspecified trimester; R19.7 Diarrhea, unspecified
CPT/HCPCS: 99213

== ENCOUNTER 2020-06-13 05:52 | Inpatient (IN) | payer MEDICAID ==
[2020-06-13] VITALS (57 sets, daily range): BP systolic 106–145; BP diastolic 55–94
[~2020-06-13] VITALS: Ht 160 cm; Wt 108.8 kg
--- NOTE | 2020-06-13 06:10 | NUR ---
MAYO FERGUSON presented to unit via ambulation from ED, accompanied by ED staff & , for INDUCTION. MAYO FERGUSON weighed, gowned, voided, and to bed. EFHM and TOCO applied, VS taken. MAYO FERGUSON oriented to bed controls, call light, TV, heat, and A/C controls.
[2020-06-13] MEDS ORDERED: AMPICILLIN FOR IV USE 2,000 MG in WATER (STERILE) FOR INJECTION 14.8 ML IV SCH (06:32)
[2020-06-13] MEDS ORDERED: D5 LR IV SOLUTION 1,000 ML IV ONE (06:32)
[2020-06-13] MEDS ORDERED: D5 LR IV SOLUTION 1,000 ML IV SCH (06:32)
[2020-06-13 06:55] LABS: BASOPHILS % (AUTO) 0 % (0-10); EOSINOPHILS # (AUTO) 0.1 10^3/uL (0.0-0.3); EOSINOPHILS % (AUTO) 2 % (0-10); HEMATOCRIT 29 % (35-52); HEMOGLOBIN 9.4 G/DL (11.5-16.0); LYMPHOCYTES # (AUTO) 1.4 X 10^3 (1.0-4.0); LYMPHOCYTES % (AUTO) 18 % (12-44); MEAN CORPUSCULAR HEMOGLOBIN 28 PG (25-34); MEAN CORPUSCULAR HGB CONC 32 G/DL (32-36); MEAN CORPUSCULAR VOLUME 87 FL (80-99); MONOCYTES # (AUTO) 0.8 X 10^3 (0.0-1.0); MONOCYTES % (AUTO) 10 % (0-12); NEUTROPHILS # (AUTO) 5.4 X 10^3 (1.8-7.8); NEUTROPHILS % (AUTO) 70 % (42-75); PLATELET COUNT 234 10^3/uL (130-400); WHITE BLOOD COUNT 7.7 10^3/uL (4.3-11.0)
--- NOTE | 2020-06-13 07:28 | History & Physical-OB ---
OB - Chief Complaint & HPI Date/Time Date of Admission: Date of Admission: Jun 13, 2020 at 05:52 Date seen by a Provider: Jun 13, 2020 Time Seen by a Provider: 07:25 Chief Complaint/History OB-Reason for Admission/Chief: Induction of Labor Hx : 3 Hx Para: 1 Expected Date of Delivery: Jun 17, 2020 Gestational Age in Weeks: 39 Gestational Age in Days: 3 Indication for induction: maternal discomfort Admission Nurse Assessment Rev: Yes History of Labs O pos Antibody neg RI RPR NR HIV NR HBsAg NR GC neg GBS pos Allergies and Home Medications Allergies Coded Allergies: codeine (Unverified Allergy, Mild, 04/24/20) Home Medications [id number]/Iron Fumarate/FA/Dss 1 Each Tablet, 1 EACH PO DAILY, (Reported) Patient Home Medication List Home Medication List Reviewed: Yes OB - History Hx of Present Care: Yes Ultrasounds: Normal mid trimester US Obstetrical Complications: None Medical Complications: None Patient Past Medical History n/a Social History/Family History 2nd Hand Smoke Exposure: No Immunizations Tetanus Booster (TDap): Unknown OB - Admission Exam Physical Exam HEENT: NCAT Heart: Rhythm Normal Lungs: Clear Abdomen: Gravid Extremities: Normal Reflexes: Normal Cervical Dilatation: 3cm Effacement: 75% Station: -1 Membranes: Intact Heart Rate: 130's Accelerations: Accelerations Present Decelerations: No Decelerations Short Term Variability: Present Care Home Variability: Average (6-25) Contractions on Admission: 6-10 Minutes Apart Intensity: Mild Labs Laboratory Tests Test 06/13/20 06:45 Range/Units White Blood Count 7.7 4.3-11.0 10^3/uL Red Blood Count 3.33 L 4.35-5.85 10^6/uL Hemoglobin 9.4 L 11.5-16.0 G/DL Hematocrit 29 L 35-52 % Mean Corpuscular Volume 87 80-99 FL Mean Corpuscular Hemoglobin 28 25-34 PG Mean Corpuscular Hemoglobin Concent 32 32-36 G/DL Red Cell Distribution Width 14.4 10.0-14.5 % Platelet Count 234 130-400 10^3/uL Mean Platelet Volume 10.0 7.4-10.4 FL Neutrophils (%) (Auto) 70 42-75 % Lymphocytes (%) (Auto) 18 12-44 % Monocytes (%) (Auto) 10 0-12 % Eosinophils (%) (Auto) 2 0-10 % Basophils (%) (Auto) 0 0-10 % Neutrophils # (Auto) 5.4 1.8-7.8 X 10^3 Lymphocytes # (Auto) 1.4 1.0-4.0 X 10^3 Monocytes # (Auto) 0.8 0.0-1.0 X 10^3 Eosinophils # (Auto) 0.1 0.0-0.3 10^3/uL Basophils # (Auto) 0.0 0.0-0.1 10^3/uL OB - Assessment/Plan/Diagnosis Assessment Assessment: induction of labor Admission Dx 30 yo @ 39.3 Elective induction of labor GBS pos Admission Status: Inpatient Order (span 2 midnights) Reason for Inpatient Admission: Induction of labor at term Plan Plan: Induction Induction Method: TOBY WATSON DO Jun 13, 2020 07:28
[2020-06-13] MEDS ORDERED: OXYTOCIN PRE-MIX DRIP 500 ML IV SCH (07:39)
[2020-06-13] MEDS ORDERED: fentaNYL 2 mcg/ml BUPIVA 0.125 100 ML ONE (08:17)
[2020-06-13] MEDS ORDERED: LIDOCAINE PF 2% 5 ML (XYLOCAINE) VIAL ONE ×3 (08:44→17:15)
[2020-06-13] MEDS ORDERED: fentaNYL INJECTION 100 MCG/2 ML AMP ONE ×2 (08:44→16:48)
[2020-06-13] MEDS ORDERED: BUPIVACAINE 0.25% 30 ML (SENSORCAINE) VIAL ONE (08:44)
[2020-06-13] MEDS ORDERED: LACTATED RINGERS 1,000 ML IV SCH (08:46)
[2020-06-13] MEDS ORDERED: ONDANSETRON 4 MG/2 ML (SDV) Z0FRAN IV PRN (09:00)
[2020-06-13] MEDS ORDERED: diphenhydrAMINE 50 MG/ML INJ (BENADRYL) IV PRN (09:00)
[2020-06-13] MEDS ORDERED: EPIDURAL (fentaNYL 2 MCG/ML BUPIVA 0.125%)100 ML BAG EPI PRN (09:00)
[2020-06-13] MEDS ORDERED: NALOXONE 0.4 MG/ML 1 ML (NARCAN) VIAL IV PRN (09:00)
[2020-06-13] MEDS: AMPICILLIN FOR IV USE 1,000 MG in WATER (STERILE) FOR INJECTION 7.4 ML IV SCH ×2 (11:07→15:27)
[2020-06-13] MEDS ORDERED: CATHETER FLUSH 10 ML SYR IV SCH ×2 (14:00→22:00)
[2020-06-13] MEDS ORDERED: PROMETHAZINE INJ 25 MG/ML (PHENERGAN) AMP ONE (14:21)
[2020-06-13] MEDS ORDERED: PROMETHAZINE INJ 25 MG/ML (PHENERGAN) AMP IVP ONE (14:30)
[2020-06-13] MEDS ORDERED: GENTAMICIN 40 MG/ML 2 ML INJ SDV IV SCH (15:45)
[2020-06-13] MEDS ORDERED: NS IV SCH (16:00)
[2020-06-13] MEDS ORDERED: GENTAMICIN IV SCH (16:00)
--- NOTE | 2020-06-13 16:16 | NUR ---
PTD GENTAMICIN LABS: ACTUAL WEIGHT 108.8 KG, IBW 52.377, ADJ BW 74.946, SCr & CrCl NOT LISTED. ASSESSMENT & PLAN: DOSED @ 7 MG/KG USING ADJ BW = 524.6 ~ 520 MG @ 1600 06/13; WILL CHECK LEVEL 06/14 @ 0200 (10 HRS AFTER DOSE)
[2020-06-13] MEDS ORDERED: METOCLOPRAMIDE INJ 10 MG/2 ML (REGLAN) ONE (16:50)
[2020-06-13] MEDS ORDERED: CITRIC ACID/SOB CIT (BICITRA) 30 ML UDC ONE (16:50)
[2020-06-13] MEDS ORDERED: ceFAZolin 2 GM IV Premixed 50 ML ONE (16:51)
[2020-06-13] MEDS ORDERED: FAMOTIDINE 20MG/2ML IV (PEPCID) ONE (16:51)
--- NOTE | 2020-06-13 17:01 | Progress Note ---
Standard Progress Note Progress Notes/Assess & Plan Date Seen by a Provider: Jun 13, 2020 Time Seen by a Provider: 16:58 Progress/Assessment & Plan Patient admitted for elective induction of labor at patient's request. GBS + started on Ampicillin, and AROM and Pitocin used for augmentation. She received an epidural and progressed with a max pitocin dosing of 6 mu to 9.5 cm/100/-1 station, but no progression occurred over the next 2 hours in station despite position changing. Now there is notable labial swelling and swelling of the anterior lip of the cervix. bradycardia is also noted, with maternal temp of 101F, gentamycin dosed due to this. Due to CPD discussed with patient delivery, emergent indication being suspected chorioamnionitis. Risk reviewed, consent obtained, and will progress as soon as staff can be ready to proceed. TOBY PAGAN DO Jun 13, 2020 17:01
[2020-06-13] MEDS ORDERED: MEASLES,MUMPS,RUBELLA 1 EA INJ SC SCH (17:15)
[2020-06-13] MEDS ORDERED: ONDANSETRON 4 MG/2 ML (SDV) Z0FRAN IVP PRN ×2 (17:15→18:15)
[2020-06-13] MEDS ORDERED: TETANUS,DIPTH,PERTUSS P/F (BOOSTRIX) 0.5 ML VIAL IM SCH (17:15)
[2020-06-13] MEDS ORDERED: ONDANSETRON 4 MG/2 ML (SDV) Z0FRAN ONE (17:24)
[2020-06-13] MEDS ORDERED: proPOfol 200 MG/20 ML (DIPRIVAN) VIAL IV ONE (17:42)
[2020-06-13] MEDS ORDERED: LACTATED RINGERS 1,000 ML IV PRN (17:58)
[2020-06-13] MEDS ORDERED: CATHETER FLUSH 10 ML SYR IV PRN (18:00)
[2020-06-13] MEDS ORDERED: CITRIC ACID/SOB CIT (BICITRA) 30 ML UDC PO ONE (18:00)
[2020-06-13] MEDS ORDERED: FAMOTIDINE 20MG/2ML IV (PEPCID) IV ONE (18:00)
[2020-06-13] MEDS ORDERED: METOCLOPRAMIDE INJ 10 MG/2 ML (REGLAN) IV ONE (18:00)
[2020-06-13] MEDS: OXYTOCIN PRE-MIX DRIP 500 ML IV SCH ×2 (18:05→21:10)
[2020-06-13] MEDS ORDERED: HYDROmorphone 2 MG/ML VIAL (DILAUDID) IV ONE (18:15)
[2020-06-13] MEDS: KETOROLAC 30 MG/ML VIAL IV SCH (18:23)
--- NOTE | 2020-06-13 19:15 | NUR ---
RT called and notified of need for IS instruction
[2020-06-13] MEDS: DOCUSATE SODIUM 100 MG (COLACE) CAP PO SCH (22:17)
[2020-06-13] MEDS: HYDROcodone/APAP 5 MG/325 MG (LORTAB) TAB PO PRN (22:19)
[2020-06-14 00:30] VITALS: BP 115/62
[2020-06-14] MEDS: KETOROLAC 30 MG/ML VIAL IV SCH ×3 (01:17→14:30)
--- NOTE | 2020-06-14 01:24 | NUR ---
Hemorrhage cart placed in front of pt's room & weighed the 3 pink pads & 2 chux pads, 400 gm/ml noted. Called Dr. Olson w/update, including blood loss, clot X1, & VS, new order rc'd to give Methergine IM X1 dose & cont. to monitor. POC reviewed w/pt, Methergine given in L AT @ 0134. Will cont. to monitor.
[2020-06-14] MEDS ORDERED: METHYLERGONOVINE 0.2 MG/ML (METHERGINE) AMP ONE (01:26)
[2020-06-14] MEDS ORDERED: METHYLERGONOVINE 0.2 MG/ML (METHERGINE) AMP IM ONE (01:30)
--- NOTE | 2020-06-14 04:05 | OPERATIVE REPORT ---
DATE OF SERVICE: PREOPERATIVE DIAGNOSES: 1. A 30-year-old G3, P1 at 39 weeks and 3 days' gestation. 2. Cephalopelvic disproportion. 3. Suspected chorioamnionitis. POSTOPERATIVE DIAGNOSES: 1. A 30-year-old G3, P1 at 39 weeks and 3 days' gestation. 2. Cephalopelvic disproportion. 3. Suspected chorioamnionitis. PROCEDURE: Primary low transverse section. SURGEON: Shashi Olson DO REWORK MACHINE OPERATOR: Dez Fregoso, MS3 ANESTHESIA: Epidural, which was bolused. ESTIMATED BLOOD LOSS: 500 mL. URINE OUTPUT: 50 mL clear at the end of the procedure. FLUIDS: 1500 mL lactated Ringer's solution. FINDINGS: A live male infant weighing 8 pounds 10 ounces, Apgars of 8 and 9. Grossly normal appearing uterus, bilateral fallopian tubes and ovaries. SPECIMEN SENT: Placenta. INDICATIONS FOR PROCEDURE: This 30-year-old female patient was admitted for elective induction of labor at her request. She was 3 cm and had a favorable Mcgill score of over 10 at the time of admission. AROM was performed and Pitocin augmentation was started after ampicillin dosing was given for GBS prophylaxis. She shortly thereafter received an epidural and progressed to anterior lip 9.5 cm, at which point, the cervix anteriorly began to swell and there was significant swelling of the labia. This occurred for the next 2 hours and the swelling did not improve. There is also a change in baseline into the 180s, persistent tachycardia with some deep variable decelerations, maternal temperature over 101 degrees Fahrenheit and diagnose the patient with chorioamnionitis at that point and started her on gentamicin along with ampicillin. Due to no change further beyond this and failure of the to the descend diagnose the patient with cephalopelvic disproportion and discussed with her proceeding with due to my concerns of tachycardia. Risks of the procedure were discussed with the patient in detail including risk of bleeding, infection, damage to surrounding structures including, but not limited to bowel, bladder, ureter, kidneys, possible need for reoperation, postoperative complications that could occur, recovery timeframe, risk from anesthesia, possible need for blood transfusion and even . After everything was discussed with the patient in detail, consent was obtained in the preoperative area, the patient was taken to the operating room. OPERATIVE REPORT IN DETAIL: Once in the operating room, epidural analgesia was bolused and found to be adequate, she was placed in supine position with leftward tilt, prepped and draped in normal sterile fashion where a timeout was performed and anesthesia was tested. I then make a Pfannenstiel skin incision with a knife and carried this incision down to the underlying fascia using Bovie cautery. The fascial incision extended laterally using Bovie cautery. Superior aspect of fascial incision was then grasped with Zack clamps, tented up and dissected off the underlying rectus muscles. The inferior aspect of the fascial incision was then grasped with Zack clamps, tented up and dissected off the underlying rectus muscles. The rectus muscle was then dissected down the midline using sharp dissection, which exposed the peritoneum, which I entered bluntly and extended using blunt traction. Lamberto ring retractor was placed in the peritoneal incision, which offers excellent lateral sidewall retraction. I identified the lower uterine segment, which was found to be thinned out and make a low transverse incision to the vesicouterine peritoneum and bluntly dissected off the lower uterine segment. I then proceeded with myotomy until membranes are visualized and fluid is leaked out of the incision, at which point I extended the uterine incision laterally and superiorly using bandage scissors. The was found in vertex presentation, occiput anterior. With gentle fundal pressure, the 's head is elevated up the incision where it was delivered through the incision. The nares and oropharynx were bulb suctioned. Anterior and posterior shoulders were delivered. The was then brought to the operative field with cord was duly clamped and cut and was handed off to waiting nurses in attendance. Cord blood was collected, 3-vessel cord with intact placenta was delivered spontaneously thereafter. IV Pitocin was initiated to facilitate uterine contraction. Uterine fundus confirmed with bimanual massage. The uterus was then exteriorized and cleared of all endometrial clots and debris. I then proceeded with closing the uterine incision using 0 Vicryl suture in running locked fashion. Second layer of imbricating 0 Monocryl was placed. Excellent hemostasis was noted after doing this. I then placed the uterus back in the pelvis and copiously irrigated the pelvis using normal saline. There was no active bleeding noted from any of my dissection planes. I placed Interceed antiadhesive over my low transverse incision. I removed the Lamberto ring retractor and proceeded with closing the peritoneum using 3-0 Vicryl suture in running fashion. The rectus muscles were reapproximated using 3-0 Vicryl suture in interrupted fashion. The fascia was reapproximated using 0 Vicryl suture in running fashion. Subcutaneous tissue was reapproximated using 3-0 plain interrupted subcutaneous stitch and skin reapproximated using 4-0 Monocryl running subcuticular. Dermabond was applied to incision and sterile dressing with adhesive white tape. The patient tolerated the procedure well and sent to recovery area in stable condition. Lap and sponge count was correct at the end of procedure. Instrument counts correct as well. Two grams of Ancef given preoperatively for infection prophylaxis. Job ID: [id number] DocumentID: [id number] Dictated Date: 06/13/2020 18:08:33 Service Team Leader Date: 06/14/2020 04:04:34 Dictated By: DO NIKOS ZABALA
[2020-06-14 04:45] VITALS: BP 104/63
[2020-06-14 05:40] LABS: BASOPHILS % (AUTO) 0 % (0-10); EOSINOPHILS # (AUTO) 0.1 10^3/uL (0.0-0.3); EOSINOPHILS % (AUTO) 1 % (0-10); HEMATOCRIT 29 % (35-52); HEMOGLOBIN 9.4 G/DL (11.5-16.0); LYMPHOCYTES # (AUTO) 1.1 X 10^3 (1.0-4.0); LYMPHOCYTES % (AUTO) 11 % (12-44); MEAN CORPUSCULAR HEMOGLOBIN 28 PG (25-34); MEAN CORPUSCULAR HGB CONC 32 G/DL (32-36); MEAN CORPUSCULAR VOLUME 88 FL (80-99); MEAN PLATELET VOLUME 9.9 FL (7.4-10.4); MONOCYTES # (AUTO) 0.6 X 10^3 (0.0-1.0); MONOCYTES % (AUTO) 6 % (0-12); NEUTROPHILS # (AUTO) 8.5 X 10^3 (1.8-7.8); NEUTROPHILS % (AUTO) 83 % (42-75); PLATELET COUNT 209 10^3/uL (130-400); WHITE BLOOD COUNT 10.2 10^3/uL (4.3-11.0)
--- NOTE | 2020-06-14 06:52 | Anesthesia-Regional Post-Op ---
Regional Patient Condition Mental Status: Alert, Oriented x3 Circulation: Same as Pre-Op Headache: Absent Sensation: Full Recovery Motor Block: Absent Post Op Complications Complications None Follow Up Care/Instructions Patient Instructions None needed. Anesthesia/Patient Condition Patient is doing well, no complaints, stable vital signs, no apparent adverse anesthesia problems. No complications reported per nursing. VIRIDIANA FRANCOIS CRNA Jun 14, 2020 06:52
[2020-06-14] MEDS: DOCUSATE SODIUM 100 MG (COLACE) CAP PO SCH ×2 (07:55→20:57)
[2020-06-14] MEDS: HYDROcodone/APAP 5 MG/325 MG (LORTAB) TAB PO PRN ×2 (07:55→18:06)
[2020-06-14 08:00] VITALS: BP 132/67
--- NOTE | 2020-06-14 08:00 | NUR ---
Dr. Olson here to see pt. Non-adherent dressing removed per at this time. netting weaver completed. Abd binder to pt twyla.
--- NOTE | 2020-06-14 08:10 | Postpartum Progress Note ---
Note Note Day # 1 Subjective: Patient is without complaints. Ambulating, voiding. Tolerating a regular diet without nausea or vomiting. Normal lochia. Pain is well controlled with oral pain medications. Objective: Physical Exam: General - Alert and oriented, no apparent distress Abdomen - Soft, appropriately tender to palpation, non-distended, fundus firm at umbilicus Extremities - no edema, negative Denise's bilaterally Incision- c/d/i Assessment: POD 1 PLTCS Plan: Routine care. Encourage breast feeding. Encourage ambulation. Ferrous sulfate supplementation. Plan for discharge tomorrow Vitals - Labs Vital Signs - I&O Vital Signs Date Time Temp Pulse Resp B/P (MAP) Pulse Ox O2 Delivery O2 Flow Rate FiO2 06/14/20 08:00 37.4 94 18 132/67 (88) 98 Room Air 06/14/20 04:45 37.2 96 18 104/63 (77) 98 Room Air 06/14/20 00:30 36.8 88 18 115/62 (79) 97 Room Air 06/13/20 20:30 37.4 88 18 106/57 (73) 96 Room Air 06/13/20 19:30 37.2 81 18 112/63 (79) 97 Room Air 06/13/20 19:00 37.4 18 116/70 (85) 98 Room Air 06/13/20 19:00 Room Air 06/13/20 18:47 37.6 18 111/60 (77) 98 Room Air 06/13/20 18:47 Room Air 06/13/20 18:34 37.2 18 113/67 (82) 98 Room Air 06/13/20 18:34 Room Air 06/13/20 18:19 Room Air 06/13/20 18:19 37.7 18 112/79 (90) 99 Room Air 06/13/20 18:04 Room Air 06/13/20 18:04 36.9 16 116/62 (80) 97 Room Air 06/13/20 17:00 90 18 132/71 (91) 06/13/20 16:55 75 18 124/58 (80) 06/13/20 16:50 80 18 129/65 (86) 06/13/20 16:45 76 18 136/76 (96) 06/13/20 16:40 38.7 74 18 121/57 (78) 06/13/20 16:30 75 18 127/60 (82) 06/13/20 16:15 38.8 84 18 133/58 (83) 06/13/20 16:00 80 18 134/65 (88) 06/13/20 15:45 78 18 135/65 (88) 06/13/20 15:30 38.1 81 18 125/68 (87) 06/13/20 15:15 39.6 77 18 126/65 (85) 06/13/20 15:00 80 18 129/66 (87) 06/13/20 14:45 78 18 129/72 (91) 06/13/20 14:30 75 18 131/71 (91) 06/13/20 14:15 37.4 06/13/20 14:07 67 18 138/61 (86) 06/13/20 14:03 75 18 136/65 (88) 06/13/20 14:00 67 18 128/65 (86) 06/13/20 13:45 75 18 129/73 (91) 06/13/20 13:30 76 18 132/84 (100) 06/13/20 13:15 78 18 129/58 (81) 06/13/20 13:00 73 18 126/74 (91) 06/13/20 12:45 68 18 119/65 (83) 06/13/20 12:30 69 18 123/58 (79) 06/13/20 12:00 67 18 120/64 (82) 06/13/20 11:45 61 18 124/61 (82) 06/13/20 11:30 61 18 130/62 (84) 06/13/20 11:15 36.8 59 18 127/65 (85) 06/13/20 11:00 36.8 64 18 125/57 (79) 06/13/20 10:45 67 18 115/56 (75) 99 Room Air 06/13/20 10:10 63 18 120/73 (89) 99 Room Air 06/13/20 10:05 66 18 115/69 (84) 98 Room Air 06/13/20 09:58 64 18 119/59 (79) 99 Room Air 06/13/20 09:52 63 18 111/70 (84) 100 Room Air 06/13/20 09:45 36.1 64 18 126/59 (81) 99 Room Air 06/13/20 09:38 62 17 122/55 (77) 99 Room Air 06/13/20 09:33 65 17 122/55 (77) 99 Room Air 06/13/20 09:30 60 17 119/58 (78) 06/13/20 09:28 69 17 122/62 (82) 99 Room Air 06/13/20 09:25 65 17 118/57 (77) 06/13/20 09:20 71 17 130/60 (83) 100 Room Air 06/13/20 09:12 73 17 127/62 (83) 99 Room Air 06/13/20 09:07 69 17 131/66 (87) 99 Room Air 06/13/20 09:02 73 17 135/63 (87) 100 Room Air 06/13/20 08:58 84 17 145/70 (95) 100 Room Air 06/13/20 08:51 80 17 117/63 (81) 99 Room Air 06/13/20 08:40 63 17 130/70 (90) 06/13/20 08:25 64 17 126/94 (105) 06/13/20 08:10 67 17 131/72 (91) I & O 06/14/20 06:59 Intake Total 3192.6 ml Output Total 50 ml Balance 3142.6 ml Labs Laboratory Tests 06/14/20 05:16: White Blood Count 10.2, Red Blood Count 3.32L, Hemoglobin 9.4L, Hematocrit 29L, Mean Corpuscular Volume 88, Mean Corpuscular Hemoglobin 28, Mean Corpuscular Hemoglobin Concent 32, Red Cell Distribution Width 14.4, Platelet Count 209, Mean Platelet Volume 9.9, Neutrophils (%) (Auto) 83H, Lymphocytes (%) (Auto) 11L , Monocytes (%) (Auto) 6, Eosinophils (%) (Auto) 1, Basophils (%) (Auto) 0, Neutrophils # (Auto) 8.5H, Lymphocytes # (Auto) 1.1, Monocytes # (Auto) 0.6, Eosinophils # (Auto) 0.1, Basophils # (Auto) 0.0, Random Gentamicin Level 0.4 TOBY PAGAN DO Jun 14, 2020 08:10
[2020-06-14] MEDS ORDERED: IBUP-844 PO (08:12)
[2020-06-14] MEDS ORDERED: DCS100C PO (08:12)
[2020-06-14] MEDS ORDERED: ACHD5005 PO (08:12)
--- NOTE | 2020-06-14 08:15 | Discharge Inst-Women's Service ---
Discharge Inst-Women's Serv Depart Medication/Instructions New, Converted or Re-Newed RX: RX on Chart Final Diagnosis POD 2 PLTCS Problems Reviewed?: Yes Consults/Follow Up Additional Follow Up: Yes Orders/Referrals Dr. Pagan in 7-10 days and in 6 weeks Activity Activity: Activity as Tolerated Driving Instructions: No Driving for 1 Week NO SMOKING: NO SMOKING Nothing Inside Vagina: No Douching, No [place], No Tampons Diet Discharge Diet: No Restrictions Symptoms to Report to : Bleeding Excessive, Pain Increased, Fever Over 101 Degrees F, Vaginal Bleeding Increase, Questions/Concerns For Any Problems or Questions: Contact Your Physician TOBY PAGAN DO Jun 14, 2020 8:15 am
[2020-06-14 14:27] VITALS: BP 116/56
--- NOTE | 2020-06-14 18:15 | NUR ---
Shower supplies provided. Pt showering individually. No needs voiced.
[2020-06-14 20:57] VITALS: BP 114/65
[2020-06-14] MEDS: IBUPROFEN 600 MG (MOTRIN) TAB PO SCH (20:57)
[2020-06-15] MEDS: HYDROcodone/APAP 5 MG/325 MG (LORTAB) TAB PO PRN ×2 (00:46→09:02)
[2020-06-15 03:45] VITALS: BP 127/67
[2020-06-15] MEDS: IBUPROFEN 600 MG (MOTRIN) TAB PO SCH ×2 (03:45→09:02)
--- NOTE | 2020-06-15 07:40 | Postpartum Progress Note ---
Note Note Day # 2 Subjective: Patient is without complaints. Ambulating, voiding. Tolerating a regular diet without nausea or vomiting. Normal lochia. Pain is well controlled with oral pain medications. Objective: Physical Exam: General - Alert and oriented, no apparent distress Abdomen - Soft, appropriately tender to palpation, non-distended, fundus firm at umbilicus Extremities - no edema, negative Deinse's bilaterally Incision- c/d/i Assessment: POD 2 PLTCS Plan: Routine care. Encourage breast feeding. Encourage ambulation. Ferrous sulfate supplementation. Plan for discharge today Vitals - Labs Vital Signs - I&O Vital Signs Date Time Temp Pulse Resp B/P (MAP) Pulse Ox O2 Delivery O2 Flow Rate FiO2 06/15/20 03:45 36.3 92 18 127/67 (87) 98 Room Air 06/14/20 20:57 36.2 92 18 114/65 (81) 97 Room Air 06/14/20 14:27 36.3 99 18 116/56 (76) Room Air 06/14/20 08:00 37.4 94 18 132/67 (88) 98 Room Air TOBY PAGAN DO Jun 15, 2020 07:40
[2020-06-15 08:45] VITALS: BP 122/57
--- NOTE | 2020-06-15 08:45 | NUR ---
A.M. ASSESSMENT COMPLETED. VSS. CARING FOR IN ROOM.
[2020-06-15] MEDS: DOCUSATE SODIUM 100 MG (COLACE) CAP PO SCH (09:02)
--- NOTE | 2020-06-15 11:00 | NUR ---
HAS BEEN IN TO SEE PT.
--- NOTE | 2020-06-15 12:00 | NUR ---
PT AND SPOUSE HAVE BEEN AMBULATING IN THE [facility] IN [place].
--- NOTE | 2020-06-15 13:56 | NUR ---
TDAP GIVEN IM IN LEFT DELTOID. SITE CLEAR.
[2020-06-15 14:00] VITALS: BP 121/61
--- NOTE | 2020-06-15 15:10 | NUR ---
DISCHARGE INSTRUCTIONS REVIEWED WITH COPY TO PT. RXS GIVEN. STATES UNDERSTANDING OF ALL INSTRUCTIONS AND NEED TO F/U SCHEDULED AND NEEDED.
[2020-06-15 15:30] VITALS: BP 121/61
--- NOTE | 2020-06-15 15:30 | NUR ---
DISMISSED VIA W/C FROM [facility] WITH INFANT IN STABLE CONDITION TO FAMILY CAR ACC BY SPOUSE AND WS STAFF.
== END 2020-06-15 15:30 | disposition home or self-care (01) | DRG 786 ==
LOC: LDRP 05:52
PROVIDERS: ADMIT Obstetrics & Gynecology; ATTEND Obstetrics & Gynecology
PROC: 10907ZC Drainage of Amniotic Fluid, Therapeutic from Products of Conception, Via Natural or Artificial Opening (ICD-10-PCS; 2020-06-13)
PROC: 10D00Z1 Extraction of Products of Conception, Low, Open Approach (ICD-10-PCS; principal; 2020-06-13 17:07)
DX: O99.824 Streptococcus B carrier state complicating childbirth (principal); O41.1230 Chorioamnionitis, third trimester, not applicable or unspecified; Z3A.39 39 weeks gestation of pregnancy; Z37.0 Single live birth; O65.4 Obstructed labor due to fetopelvic disproportion, unspecified; O76 Abnormality in fetal heart rate and rhythm complicating labor and delivery; Z23 Encounter for immunization
CPT/HCPCS: 36415; 80170; 85025; 86850; 86900; 86901; 90715; 94664

== ENCOUNTER 2022-04-06 11:23 | Emergency (ER) | payer MEDICAID ==
[~2022-04-06] VITALS: Ht 165 cm; Wt 95.0 kg
[~2022-04-06 11:23] MED LIST changes: +ACHD5005 PO; +DOCU-239 PO; +IBUP-844 PO; +SCOP1PAT10 TD; -SCOP1PAT11 TD
[2022-04-06 12:02] LABS: BILIRUBIN,URINE NEGATIVE (NEGATIVE); CLARITY,URINE SL CLOUDY; COLOR,URINE YELLOW; GLUCOSE, URINE (UA) NEGATIVE (NEGATIVE); KETONES,URINE NEGATIVE (NEGATIVE); LEUKOCYTE ESTERASE ,URINE NEGATIVE (NEGATIVE); NITRITE,URINE NEGATIVE (NEGATIVE); PROTEIN,URINE NEGATIVE (NEGATIVE)
[2022-04-06 12:11] LABS: BACTERIA,URINE TRACE /HPF; WBC,URINE 0-2 /HPF
[2022-04-06 12:13] LABS: BASOPHILS % (AUTO) 1 % (0-10); EOSINOPHILS # (AUTO) 0.1 10^3/uL (0.0-0.3); EOSINOPHILS % (AUTO) 2 % (0-10); HEMATOCRIT 37 % (35-52); HEMOGLOBIN 11.5 g/dL (11.5-16.0); LYMPHOCYTES # (AUTO) 1.6 10^3/uL (1.0-4.0); LYMPHOCYTES % (AUTO) 27 % (12-44); MEAN CORPUSCULAR HEMOGLOBIN 26 pg (25-34); MEAN CORPUSCULAR HGB CONC 31 g/dL (32-36); MEAN CORPUSCULAR VOLUME 86 fL (80-99); MEAN PLATELET VOLUME 9.1 fL (9.0-12.2); MONOCYTES # (AUTO) 0.5 10^3/uL (0.0-1.0); MONOCYTES % (AUTO) 8 % (0-12); NEUTROPHILS # (AUTO) 3.7 10^3/uL (1.8-7.8); NEUTROPHILS % (AUTO) 62 % (42-75); PLATELET COUNT 315 10^3/uL (130-400)
--- NOTE | 2022-04-06 12:20 | ED General ---
General Chief Complaint: Abdominal/GI Problems Stated Complaint: MIGRAINES,N/V,DIARRHEA,WEAKNESS Nursing Triage Note: pt states she started feeling sick saturday, nvd, was seen saturday by and given zofran, feels constipated now, states she blacked out about 0930 this morning woke up on the floor but doesn't remember falling, denies any pain from a fall. Source of Information: Patient Exam Limitations: No Limitations (DEEDEE AZEVEDO APRN) History of Present Illness Date Seen by Provider: Apr 06, 2022 Time Seen by Provider: 12:17 Initial Comments To ER with reports of nausea vomiting, headache, sore throat, constipation. She began feeling sick about 3 days ago. Was seen at [facility] and given Zofran which did help with the nausea but she now feels constipated. She was walking around the kitchen this morning when she fell and awakened on the floor. She does have a headache but she has had a headache for about the past week. She does not have a history of migraines. She is been taking ibuprofen without much relief. Last dose was 2 days ago. No fevers. No urinary symptoms. Mild intermittent right-sided abdominal pain. States that she is not been eating well but she has kept up with fluids. Timing/Duration: 4-5 Days Severity: Moderate Associated Systoms: Headaches, Loss of Appetite, Nausea/Vomiting, Syncope (DEEDEE AZEVEDO APRN) Allergies and Home Medications Allergies Coded Allergies: codeine (Unverified Allergy, Mild, 04/24/20) latex (Verified Adverse Reaction, Mild, Rash, 06/13/20) "infection" "breaking out" Patient Home Medication List Home Medication List Reviewed: Yes (DEEDEE AZEVEDO APRN) Docusate Sodium (Dok) 100 Mg Capsule, 100 MG PO BID PRN for CONSTIPATION-1ST LINE Prescribed by: TOBY PAGAN on 06/14/20811 Hydrocodone/Acetaminophen (Hydrocodone-Acetamin 5-325 mg) 1 Each Tablet, 1-2 TAB PO Q6HR PRN for PAIN-MODERATE (5-7) Prescribed by: TOBY PAGAN on 06/14/20811 Ibuprofen (Ibu) 600 Mg Tablet, 600 MG PO Q6HR Prescribed by: TOBY PAGAN on 06/14/20811 Sit207/Iron Fumarate/FA/Dss ( 19 Tablet) 1 Each Tablet, 1 EACH PO DAILY, (Reported) Entered as Reported by: EDD ANTHONY on 03/01/20 0123 Polyethylene Glycol 3350 (Miralax) 17 Gram Powd.pack, 17 GM PO BID Prescribed by: DEEDEE AZEVEDO on 04/06/22 1322 Review of Systems Review of Systems Constitutional: see HPI; No chills, No fever EENTM: see HPI, throat pain Respiratory: see HPI; No cough, No dyspnea on exertion, No short of breath Cardiovascular: no symptoms reported Gastrointestinal: abdominal pain, constipation, nausea, vomiting Genitourinary: no symptoms reported Musculoskeletal: no symptoms reported Skin: no symptoms reported Psychiatric/Neurological: See HPI, Headache Hematologic/Lymphatic: No Symptoms Reported Immunological/Allergic: no symptoms reported (DEEDEE AZEVEDO APRN) Past Vkguhfc-Mwrktk-Nvadsd Hx Patient Social History Tobacco Use?: No Substance use?: No Alcohol Use?: No (DEEDEE AZEVEDO APRN) Immunizations Up To Date Tetanus Booster (TDap): Unknown PED Vaccines UTD: Yes (DEEDEE AZEVEDO APRN) Seasonal Allergies Seasonal Allergies: No (DEEDEE AZEVEDO APRN) Past Medical History Surgery/Hospitalization HX: c section, dental surgery Surgeries: Yes (dental) Bladder Surgery Respiratory: No Cardiac: No Neurological: No Last Menstrual Period: Mar 05, 2022 Genitourinary: No Gastrointestinal: No Musculoskeletal: No Endocrine: Yes (high thyroid early , normal now ) Hypothyroidsim HEENT: No Cancer: No Psychosocial: No Integumentary: No Blood Disorders: Yes (anemia ) Adverse Reaction/Blood Tranf: No (DEEDEE AZEVEDO APRN) Family Medical History FH: rheumatoid arthritis 19 MOTHER Physical Exam Vital Signs Vital Signs - First Documented 04/06/22 11:47 Temp 36.5 Pulse 73 Resp 18 B/P (MAP) 124/75 (91) Pulse Ox 98 O2 Delivery Room Air (JG TOWNSEND MD) Vital Signs Capillary Refill : Less Than 3 Seconds (DEEDEE AZEVEDO APRN) Height, Weight, BMI Height: 5'5.00" Weight: 195lbs. oz. [id number]; 34.00 BMI Method:Stated General Appearance: No Apparent Distress, WD/WN, Other (Well-appearing alert and oriented GCS 15 tympanic membrane's are normal oropharynx is normal. No scalp hematoma or laceration) Eyes: Bilateral Eye Normal Inspection, Bilateral Eye PERRL, Bilateral Eye EOMI HEENT: PERRL/EOMI, TMs Normal Neck: Full Range of Motion, Normal Inspection Respiratory: No Accessory Muscle Use, No Respiratory Distress Cardiovascular: Regular Rate, Rhythm, Normal Peripheral Pulses Gastrointestinal: Normal Bowel Sounds, Non Tender, Soft Extremity: Normal Capillary Refill, Normal Inspection Neurologic/Psychiatric: Alert, Oriented x3 Skin: Normal Color, Warm/Dry (DEEDEE AZEVEDO APRN) Progress/Results/Core Measures Suspected Sepsis SIRS Temperature: Pulse: 73 Respiratory Rate: 18 Laboratory Tests 04/06/22 12:07: White Blood Count 6.0 Blood Pressure 124 /75 Mean: 91 Laboratory Tests 04/06/22 12:07: Creatinine 0.91, Platelet Count 315, Total Bilirubin 0.3 (DEEDEE AZEVEDO APRN) Results/Orders Lab Results Laboratory Tests Test 04/06/22 11:50 04/06/22 11:55 04/06/22 12:07 Range/Units Influenza Type A (RT-PCR) Not Detected Not Detecte Influenza Type B (RT-PCR) Not Detected Not Detecte SARS-CoV-2 RNA (RT-PCR) Not Detected Not Detecte Urine Color YELLOW Urine Clarity SL CLOUDY Urine pH 6.0 5-9 Urine Specific [place] 1.020 1.016-1.022 Urine Protein NEGATIVE NEGATIVE Urine Glucose (UA) NEGATIVE NEGATIVE Urine Ketones NEGATIVE NEGATIVE Urine Nitrite NEGATIVE NEGATIVE Urine Bilirubin NEGATIVE NEGATIVE Urine Urobilinogen 0.2 < = 1.0 MG/DL Urine Leukocyte Esterase NEGATIVE NEGATIVE Urine RBC (Auto) 2+ H NEGATIVE Urine RBC 2-5 H /HPF Urine WBC 0-2 /HPF Urine Squamous Epithelial Cells 2-5 /HPF Urine Crystals NONE /LPF Urine Bacteria TRACE /HPF Urine Casts NONE /LPF Urine Mucus NEGATIVE /LPF Urine Culture Indicated NO White Blood Count 6.0 4.3-11.0 10^3/uL Red Blood Count 4.36 3.80-5.11 10^6/uL Hemoglobin 11.5 11.5-16.0 g/dL Hematocrit 37 35-52 % Mean Corpuscular Volume 86 80-99 fL Mean Corpuscular Hemoglobin 26 25-34 pg Mean Corpuscular Hemoglobin Concent 31 L 32-36 g/dL Red Cell Distribution Width 15.5 H 10.0-14.5 % Platelet Count 315 130-400 10^3/uL Mean Platelet Volume 9.1 9.0-12.2 fL Immature Granulocyte % (Auto) 0 % Neutrophils (%) (Auto) 62 42-75 % Lymphocytes (%) (Auto) 27 12-44 % Monocytes (%) (Auto) 8 0-12 % Eosinophils (%) (Auto) 2 0-10 % Basophils (%) (Auto) 1 0-10 % Neutrophils # (Auto) 3.7 1.8-7.8 10^3/uL Lymphocytes # (Auto) 1.6 1.0-4.0 10^3/uL Monocytes # (Auto) 0.5 0.0-1.0 10^3/uL Eosinophils # (Auto) 0.1 0.0-0.3 10^3/uL Basophils # (Auto) 0.0 0.0-0.1 10^3/uL Immature Granulocyte # (Auto) 0.0 0.0-0.1 10^3/uL Sodium Level 140 135-145 MMOL/L Potassium Level 3.7 3.6-5.0 MMOL/L Chloride Level 105 98-107 MMOL/L Carbon Dioxide Level 25 21-32 MMOL/L Anion Gap 10 5-14 MMOL/L Blood Urea Nitrogen 13 7-18 MG/DL Creatinine 0.91 0.60-1.30 MG/DL Estimat Glomerular Filtration Rate 85 BUN/Creatinine Ratio 14 Glucose Level 95 70-105 MG/DL Calcium Level 9.1 8.5-10.1 MG/DL Corrected Calcium 8.7 8.5-10.1 MG/DL Total Bilirubin 0.3 0.1-1.0 MG/DL Aspartate Amino Transf (AST/SGOT) 20 5-34 U/L Alanine Aminotransferase (ALT/SGPT) 24 0-55 U/L Alkaline Phosphatase 58 40-136 U/L Total Protein 7.8 6.4-8.2 GM/DL Albumin 4.5 3.2-4.5 GM/DL Serum Test, Qualitative NEGATIVE NEGATIVE (JG TOWNSEND MD) My Orders Orders - JG TOWNSEND MD Covid 19 Inhouse Test (04/06/22 11:31) Influenza A And B By Pcr (04/06/22 11:31) (JG TOWNSEND MD) Medications Given in ED Current Medications Medications Dose Ordered Sig/Basilio Route Start Time Stop Time Status Last Admin Dose Admin Ketorolac Tromethamine 15 mg ONCE ONCE IVP 04/06/22 12:30 04/06/22 12:31 DC 04/06/22 12:29 15 MG (JG TOWNSEND MD) Vital Signs/I&O 04/06/22 04/06/22 04/06/22 11:47 12:29 13:27 Temp 36.5 36.5 36.5 Pulse 73 72 Resp 18 18 B/P (MAP) 124/75 (91) 111/56 Pulse Ox 98 98 O2 Delivery Room Air Room Air (JG TOWNSEND MD) Vital Signs/I&O Capillary Refill : Less Than 3 Seconds (DEEDEE AZEVEDO APRN) Blood Pressure Mean: 91 Departure Impression Primary Impression: Viral syndrome Additional Impression: Constipation Disposition: 01 HOME, SELF-CARE Condition: Stable Departure-Patient Inst. Decision time for Depature: 13:21 (DEEDEE AZEVEDO APRN) Referrals: ANTOINETTE DAWSON MD (PCP/Family) Primary Care Physician Patient Instructions: No Instuctions Given Add. Discharge Instructions: 1. Medication as directed. Return to ER for any concerns. Follow-up with your doctor next week. All discharge instructions reviewed with patient and/or family. Voiced unde rstanding. Scripts Polyethylene Glycol 3350 (Miralax) 17 Gram Powd.pack 17 GM PO BID, #6 EACH Prov: DEEDEE AZEVEDO APRN 04/06/22 ATTENDING PHYSICIAN NOTE: I was physically present as attending physician in the emergency department during the care of this patient. I placed orders for the COVID and influenza screening after reviewing chief complaint, but I was otherwise not directly involved in the decision making or delivery of care for this patient. (JG TOWNSEND MD) DEEDEE AZEVEDO APRN Apr 06, 2022 12:20 JG TOWNSEND MD Apr 06, 2022 18:31
[2022-04-06 12:25] LABS: ALBUMIN 4.5 GM/DL (3.2-4.5)
[2022-04-06 12:26] LABS: POTASSIUM 3.7 MMOL/L (3.6-5.0)
[2022-04-06 12:27] LABS: CALCIUM 9.1 MG/DL (8.5-10.1)
[2022-04-06 12:28] LABS: TOTAL PROTEIN 7.8 GM/DL (6.4-8.2)
[2022-04-06 12:30] LABS: BILIRUBIN,TOTAL 0.3 MG/DL (0.1-1.0)
[2022-04-06] MEDS ORDERED: KETOROLAC 30 MG/ML VIAL IVP ONE (12:30)
[2022-04-06 12:32] LABS: CREATININE SERUM 0.91 MG/DL (0.60-1.30)
--- NOTE | 2022-04-06 13:00 | Diagnostic Imaging Report ---
EXAMINATION: CT head without contrast. TECHNIQUE: Multiple contiguous axial images were obtained through the brain without the use of intravenous contrast. All CT scans use one or more of the following dose optimizing techniques: automated exposure control, MA and/or KvP adjustment based on patient size and exam type or iterative reconstruction. HISTORY: Headache. Migraines. COMPARISON: 04/03/2019. FINDINGS: No large acute territorial ischemia, mass, or hemorrhage. No midline shift or mass effect. The ventricles, cortical sulci, and basilar cisterns are patent and unremarkable. The orbits are normal. Paranasal sinuses are normal. Mastoid air cells are clear. No soft tissue abnormality is seen. No osseus lesions or fractures are seen. IMPRESSION: 1. No large acute territorial ischemia, mass, or hemorrhage. Dictated by: Dictated on workstation # [id number]
[2022-04-06] MEDS ORDERED: POLY17PO6 PO (13:22)
[2022-04-06 13:27] VITALS: BP 111/56
--- NOTE | 2022-04-06 13:29 | Diagnostic Imaging Report ---
INDICATION: Constipation. COMPARISON: None FINDINGS: 2 frontal radiographic views of the abdomen were obtained. Small bowel loops are nondistended. There is no large collection of free intraperitoneal air. Mild air and stool is noted scattered throughout the colon. No unexpected extraosseous calcifications or radiopaque foreign bodies are seen. Osseous structures show no gross acute abnormalities. IMPRESSION: 1. Nonobstructive small bowel gas pattern. 2. Mild colonic air and stool. Dictated by: Dictated on workstation # [id number]
== END 2022-04-06 13:27 | disposition home or self-care (01) ==
LOC: EDUNIT# 11:23 → ER 11:25
DX: B34.9 Viral infection, unspecified (principal); K59.00 Constipation, unspecified; Z20.822 Contact with and (suspected) exposure to COVID-19; Z28.310 Unvaccinated for COVID-19; Z32.02 Encounter for pregnancy test, result negative
CPT/HCPCS: 36415; 70450; 74018; 80053; 81000; 84703; 85025; 87636

== ENCOUNTER 2022-08-12 05:52 | Emergency (ER) | payer MEDICAID ==
[~2022-08-12] VITALS: Ht 165.1 cm; Wt 98.4 kg
[~2022-08-12 05:52] MED LIST changes: +POLY17PO6 PO
[2022-08-12] MEDS ORDERED: AMOX500T2 PO (06:17)
--- NOTE | 2022-08-12 06:19 | ED Cough/URI ---
General Chief Complaint: Cough/Cold/Flu Symptoms Stated Complaint: BILAT EAR PAIN - FEVER- COUGH - CONGESTION Nursing Triage Note: Pt ambulates to ED 6 with c/o sore throat and fatigue since Saturday. States it has gotten worse today, pt woke up with nausea/vomiting, chills, and bilateral ear pain in addition to sore throat. Source: patient Exam Limitations: no limitations History of Present Illness Date Seen by Provider: Aug 12, 2022 Time Seen by Provider: 06:05 Initial Comments 52-year-old female presents for fatigue bilateral ear pain and vomiting, chills since Saturday. No sick contacts. Has not tried anything for her symptoms Allergies and Home Medications Allergies Coded Allergies: codeine (Unverified Allergy, Mild, 04/24/20) latex (Verified Adverse Reaction, Mild, Rash, 06/13/20) "infection" "breaking out" Patient Home Medication List Home Medication List Reviewed: Yes Amoxicillin (Amoxicillin) 500 Mg Tablet, 500 MG PO BID Prescribed by: JANELLE PAREDES MD on 08/12/22 0617 Docusate Sodium (Dok) 100 Mg Capsule, 100 MG PO BID PRN for CONSTIPATION-1ST LINE Prescribed by: TOBY PAGAN on 06/14/20 0812 Hydrocodone/Acetaminophen (Hydrocodone-Acetamin 5-325 mg) 1 Each Tablet, 1-2 TAB PO Q6HR PRN for PAIN-MODERATE (5-7) Prescribed by: TOBY PAGAN on 06/14/20 0812 Ibuprofen (Ibu) 600 Mg Tablet, 600 MG PO Q6HR Prescribed by: TOBY PAGAN on 06/14/20 0812 Jzx617/Iron Fumarate/FA/Dss ( 19 Tablet) 1 Each Tablet, 1 EACH PO DAILY, (Reported) Entered as Reported by: EDD ANTHONY on 03/01/20 0123 Polyethylene Glycol 3350 (Miralax) 17 Gram Powd.pack, 17 GM PO BID Prescribed by: DEEDEE AZEVEDO on 04/06/22 1322 Review of Systems Review of Systems Constitutional: fever EENTM: ear pain, nose pain Respiratory: cough Cardiovascular: no symptoms reported Gastrointestinal: no symptoms reported Genitourinary: no symptoms reported Musculoskeletal: no symptoms reported Skin: no symptoms reported Psychiatric/Neurological: No Symptoms Reported Hematologic/Lymphatic: No Symptoms Reported Immunological/Allergic: no symptoms reported Past Ziyrebu-Weyssi-Vnrmjx Hx Patient Social History Tobacco Use?: No Smoking Status: Never a Smoker Smokeless Tobacco Frequency: Never a User Use of E-Cig and/or Vaping dev: No Substance use?: No Alcohol Use?: No Pt feels they are or have been: No Immunizations Up To Date Tetanus Booster (TDap): Unknown PED Vaccines UTD: Yes Influenza Vaccine Up-to-Date: No; Not Current First/Initial COVID19 Vaccinat: None Seasonal Allergies Seasonal Allergies: No Past Medical History Surgery/Hospitalization HX: c section, dental surgery Surgeries: Yes (dental) Bladder Surgery Respiratory: No Cardiac: No Neurological: No Last Menstrual Period: Jun 29, 2022 Genitourinary: No Gastrointestinal: No Musculoskeletal: No Endocrine: Yes (high thyroid early , normal now ) Hypothyroidsim HEENT: No Cancer: No Psychosocial: No Integumentary: No Blood Disorders: Yes (anemia ) Adverse Reaction/Blood Tranf: No Family Medical History Reviewed Nursing Family Hx FH: rheumatoid arthritis 19 MOTHER No Pertinent Family Hx Physical Exam Vital Signs - First Documented 08/12/22 05:59 Temp 37.2 Pulse 109 Resp 18 B/P (MAP) 111/52 (71) Pulse Ox 98 O2 Delivery Room Air Capillary Refill : Height: 5'5.00" Weight: 195lbs. oz. 88.832170fd; 36.00 BMI Method:Stated General Appearance: WD/WN, no apparent distress HEENT: PERRL/EOMI, normal ENT inspection, pharynx normal, other (Right TM is erythematous, bulging. No purulence. Intact.) Neck: non-tender, full range of motion, supple, normal inspection Respiratory: chest non-tender, lungs clear, normal breath sounds, no respiratory distress, no accessory muscle use Cardiovascular: regular rate, rhythm, no edema, no gallop, no JVD, no murmur Gastrointestinal: normal bowel sounds, non tender, soft, no organomegaly, no pulsatile mass Extremities: normal range of motion, non-tender, normal inspection, no pedal edema, no calf tenderness, normal capillary refill Neurologic/Psychiatric: alert, normal mood/affect, oriented x 3 Skin: normal color, warm/dry Lymphatic: no adenopathy Progress/Results/Core Measures Suspected Sepsis SIRS Temperature: Pulse: 109 Respiratory Rate: 18 Blood Pressure 111 /52 Mean: 71 Results/Orders Vital Signs/I&O 08/12/22 08/12/22 05:59 06:23 Temp 37.2 37.2 Pulse 109 86 Resp 18 18 B/P (MAP) 111/52 (71) 99/75 Pulse Ox 98 98 O2 Delivery Room Air Room Air Capillary Refill : Blood Pressure Mean: 71 Departure Communication (Admissions) Patient is hemodynamically stable, nontoxic. Symptoms consistent with viral URI. She likely has eustachian dysfunction leading to right otitis media. We will go ahead and treat with antibiotics for this although it may be mostly viral in nature. I offered COVID and flu testing, patient declines. She is discharged in stable condition with supportive care. Impression Primary Impression: Upper respiratory infection Qualified Codes: J06.9 - Acute upper respiratory infection, unspecified Additional Impression: Otitis media Qualified Codes: H65.191 - Other acute nonsuppurative otitis media, right ear Disposition: HOME, SELF-CARE Condition: Stable Departure-Patient Inst. Referrals: ANTONIETTE DAWSON MD (PCP/Family) Primary Care Physician Patient Instructions: Viral Upper Respiratory Infection, Adult (DC) Add. Discharge Instructions: Please alternate Tylenol and Motrin as needed for headaches fever and body aches. I recommend you use a generic form of Flonase, 2 sprays in each nostril twice a day as well as [id number] Sudafed to help with your nasal congestion and ear symptoms. He did appear to have an ear infection on the right side. It is possible that this is bacterial infection so provided antibiotics. Unfortunately this is all related to a viral illness likely would not help. Increase your fluids at home and rest. Return to the emergency department for any severe concerns. Follow-up with primary doctor for any nonemergent needs. All discharge instructions reviewed with patient and/or family. Voiced understanding. Scripts Amoxicillin (Amoxicillin) 500 Mg Tablet 500 MG PO BID for 5 Days, #10 TAB Prov: JANELLE PAREDES DO 08/12/22 JANELLE PAREDES DO Aug 12, 2022 06:19
[2022-08-12 06:23] VITALS: BP 99/75
== END 2022-08-12 06:24 | disposition home or self-care (01) ==
LOC: EDUNIT# 05:52 → ER 05:54
DX: J06.9 Acute upper respiratory infection, unspecified (principal); H66.91 Otitis media, unspecified, right ear; Z91.040 Latex allergy status; Z88.5 Allergy status to narcotic agent; Z28.310 Unvaccinated for COVID-19
CPT/HCPCS: 99283